=== PATIENT | male | born 1970 | race Caucasian/White ===

== ENCOUNTER 2018-12-27 22:35 | Inpatient (IN) | payer MEDICARE, MEDICAID | END 2019-01-01 14:25 | disposition home or self-care (01) | LOC: ER 22:35 → ED HOLD 12-28 00:24 → ORTHO 4S 12-28 01:43 | PROC: 0TPBX0Z Removal of Drainage Device from Bladder, External Approach (ICD-10-PCS; principal; ~2018-12-27) | DX: J15.9 Unspecified bacterial pneumonia (principal); G82.52 Quadriplegia, C1-C4 incomplete; N39.0 Urinary tract infection, site not specified ==

== ENCOUNTER 2022-09-21 09:33 | Emergency (ER) | payer MEDICARE, MEDICAID ==
[~2022-09-21] VITALS: Ht 188 cm; Wt 84.1 kg
[~2022-09-21 09:33] MED LIST: ALBU18HF2 INH; ALBU2.5V12 NEB; AZIT500T9 PO; GABA-534 PO; GUAI600T45 PO; TIZA4CAP PO
[2022-09-21] MEDS ORDERED: ketorolac trometh. 30mg/ml inj. IV ONE (10:20)
[2022-09-21] MEDS ORDERED: ketorolac tromethamine 15mg/ml inj. IV ONE (10:25)
[2022-09-21 10:55] LABS: ALANINE AMINOTRANSFERASE 8 U/L (12-78); ALBUMIN 3.1 G/DL (3.4-5.0); ALBUMIN/GLOBULIN RATIO 0.8 (1.1-1.5); ALKALINE PHOSPHATASE 73 IU/L (46-116); ANION GAP 3 (8-16); ASPARTATE AMINO TRANSFERASE 18 U/L (10-37); BILIRUBIN,TOTAL 0.3 MG/DL (0.1-1.0); BLOOD UREA NITROGEN 10 MG/DL (7-18); BUN/CREATININE RATIO 41.7 (5.4-32.0); CALCIUM 8.9 MG/DL (8.5-10.1); CHLORIDE 106 MMOL/L (99-107); CREATININE 0.24 MG/DL (0.60-1.10); GLUCOSE 97 MG/DL (70-104); SODIUM 141 MMOL/L (135-145); TOTAL CARBON DIOXIDE 31.9 MMOL/L (24-32); TOTAL PROTEIN 6.9 G/DL (6.4-8.2); eGFR > 90 ML/MIN
[2022-09-21 12:04] LABS: BASOPHILS % (AUTO) 0.6 % (0-1); EOSINOPHILS # (AUTO) 0.2 X10'3 (0-0.9); EOSINOPHILS % (AUTO) 2.6 % (0-6); HEMATOCRIT 35.3 % (42.0-52.0); HEMOGLOBIN 11.7 g/dl (14.0-17.9); LYMPHOCYTES # (AUTO) 1.1 X10'3 (1.1-4.8); LYMPHOCYTES % (AUTO) 16.8 % (21-51); MEAN CORPUSCULAR HEMOGLOBIN 28.5 PG (27.0-31.0); MEAN CORPUSCULAR VOLUME 86.4 FL (78-98); MEAN PLATELET VOLUME 8.2 FL (7.4-10.4); MONOCYTES # (AUTO) 0.4 X10'3 (0-0.9); MONOCYTES % (AUTO) 6.7 % (2-12); NEUTROPHILS # (AUTO) 4.7 X10'3 (1.8-7.7); NEUTROPHILS % (AUTO) 73.3 % (42-75); PLATELET COUNT 179 X10'3 (140-440); RED BLOOD COUNT 4.09 X10'6 (4.70-6.10); RED CELL DISTRIBUTION WIDTH 17.6 % (11.5-14.5); WHITE BLOOD COUNT 6.4 X10'3 (4.5-11.0)
[2022-09-21 12:23] LABS: CLARITY,URINE CLOUDY (Clear); COLOR,URINE YELLOW (Yellow); GLUCOSE, URINE NEGATIVE (Neg); KETONES,URINE NEGATIVE (Neg); LEUKOCYTE ESTERASE ,URINE LARGE (Neg); NITRITES, URINE POSITIVE (Neg); OCCULT BLOOD,URINE SMALL (Neg); PROTEIN,URINE NEGATIVE (Neg); UROBILINOGEN,URINE 0.2 E.U/dL (0.2-1.0)
[2022-09-21 12:25] LABS: UA COLLECTION TYPE STRAIGHT CATH
[2022-09-21 12:27] LABS: WBC,URINE TNTC /HPF (0-4)
[2022-09-21 12:28] LABS: BACTERIA,URINE 1+ /HPF (Neg); MUCUS STRANDS NONE SEEN /LPF (Neg); RBC,URINE 0-2 /HPF (0-2); SQUAMOUS EPITHELIAL CELL,UR MANY /LPF (FEW)
[2022-09-21 12:29] LABS: YEAST FEW /HPF (NEGATIVE)
[2022-09-21] MEDS ORDERED: CefTRIAXone/D5W-Rocephin 1gm 50 ML IV ONE (13:00)
[2022-09-21] MEDS ORDERED: CEFD300C3 PO (14:32)
[2022-09-21 16:00] VITALS: BP 121/74
== END 2022-09-21 16:50 | disposition home or self-care (01) ==
LOC: ER 09:33
DX: T83.038A Leakage of other urinary catheter, initial encounter (principal); N39.0 Urinary tract infection, site not specified; I48.91 Unspecified atrial fibrillation; Z87.442 Personal history of urinary calculi; Z86.69 Personal history of other diseases of the nervous system and sense organs; Z95.0 Presence of cardiac pacemaker; Z98.890 Other specified postprocedural states; Z88.8 Allergy status to other drugs, medicaments and biological substances; Z79.2 Long term (current) use of antibiotics; Z79.899 Other long term (current) drug therapy; Y84.6 Urinary catheterization as the cause of abnormal reaction of the patient, or of later complication, without mention of misadventure at the time of the procedure
CPT/HCPCS: 36415; 74176; 80053; 81001; 85025; 87088; 96365; 96375; 99284; J0696; J1885

== ENCOUNTER 2025-04-19 11:03 | Inpatient (IN) | payer MEDICARE, MEDICAID ==
[~2025-04-19] VITALS: Ht 185.4 cm; Wt 80.0 kg
[~2025-04-19 11:03] MED LIST changes: -GABA-534 PO; +GABA-535 PO
--- NOTE | 2025-04-19 11:30 | Physician Documentation ---
History of Present Illness ~ Chief Complaint: Flank Pain Stated Complaint: L SIDE NUMBNESS Time Seen by MD: 11:29 Primary Medical Doctor: DR. ARMENDARIZ; [facility] HPI This is a 54-year-old male with a complex medical history that includes romulo driparesis, ostomy, chronic indwelling suprapubic catheter. He presents today due to concerns that he has, again, a urinary tract infection. He is endorsing generalized abdominal pain, and does note a history of kidney stones. He evidently sees urologist Dr. Gottlieb. Hx recurrent kidney stones. He notes recent imaging and hospitalization at [facility]. Reports feeling overall unwell but is unsure about chills/fever. Some nausea, no vomiting. Attempts to obtain these records have been unsuccessful. 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 Physical Exam Vital Signs: Temperature: 98.6, Source: Oral, Heart Rate: 83, Respiratory Rate: 14, BP: 152/79, Pulse Oximetry: 99, Weight: 80.000 Oxygen Flow Rate: 0 Physical Exam General: Alert, no apparent distress. Chronically ill appearing Neck: Full range of motion. Respiratory: Lungs clear, no respiratory distress. Chest: No accessory muscle use. Cardiovascular: Regular rate and rhythm, no murmurs. Gastrointestinal: Diffuse abd tenderness. Extremities: Quadriparesis Neurologic: Oriented x4. Psychiatric: Normal mood and affect. Skin: Normal color, warm and dry. No edema, no ecchymosis. Progress Progress Note 1328: Spoke with rural mail contractor ID specialist Dr. Sam who advises that she is aware of patient hx and recommends Merrem. She will also f/u on his cx. 1333: Page to rural mail contractor urologist Dr. Rajan. 1424: Spoke with Dr. Gottlieb, who states patient well known to him. Does NOT recommend repeating CT. Reports that most recent CT scan showed non-obstructing stones. Agrees to consult during hospitalization. Results/Orders Results/Orders Orders - RAMILA PEARCE HYDRAULIC OIL TOOL OPERATOR Cult Urine + Corn Ct (04/19/25 12:01) * Iv Access / Saline Lock * (04/19/25 12:12) Potassium Cl 40meq/1/2ns 520ml ([place] (04/19/25 12:40) Observation Status Start (04/19/25 12:37) Observation Status Start (04/19/25 12:37) Culture Blood (04/19/25 13:28) Page Hospitalist (04/19/25 14:02) Completed Orders - RAMILA PEARCE HYDRAULIC OIL TOOL OPERATOR Cbc/Diff (04/19/25 11:31) CMP (04/19/25 11:31) Ua W/Microscopic, Cult If Ind (04/19/25 11:15) Morphine 4mg/Ml Inj. (Morphine Inj.) (04/19/25 12:15) Ondansetron Inj. (Zofran 4mg/2ml Vial) (04/19/25 12:15) Potassium Cl Sr Tablet (K-Dur Tablet) (04/19/25 12:40) Lacticsepsis (04/19/25 13:28) Procalcitonin (04/19/25 13:28) Meropenem 500mg/50ml-Ns Ivpb (Meropenem- (04/19/25 13:35) C-Reactive Protein (04/19/25 11:56) Medications Received in ER Medications (Trade) Dose Ordered Sig/Pebbles Route PRN Reason Start Time Stop Time Status Last Admin Dose Admin (morphine inj.) 4 mg ONCE ONCE IV 04/19/25 12:15 04/19/25 12:16 DC 04/19/25 14:00 4 MG (Zofran 4mg/2ml vial) 4 mg ONCE ONCE IV 04/19/25 12:15 04/19/25 12:16 DC 04/19/25 13:59 4 MG Potassium Chloride 520 ml @ 130 mls/hr ONCE ONCE IV 04/19/25 12:40 04/19/25 16:39 04/19/25 14:02 130 MLS/HR (K-DUR tablet) 20 meq ONCE ONCE PO 04/19/25 12:40 04/19/25 12:41 DC 04/19/25 13:39 20 MEQ Meropenem/Sodium Chloride 50 ml @ 100 mls/hr NOW ONCE IV 04/19/25 13:35 04/19/25 14:04 DC 04/19/25 14:26 100 MLS/HR Vital Signs 04/19/25 04/19/25 04/19/25 04/19/25 11:07 11:30 13:37 14:00 Temp 98.6 Pulse 83 75 Resp 14 12 12 B/P (MAP) 152/79 137/57 (83) Pulse Ox 99 98 O2 Flow Rate 0 0 04/19/25 14:40 Pulse 67 Resp 17 B/P (MAP) 103/57 (72) Pulse Ox 97 O2 Flow Rate 0 Laboratory Tests Test 04/19/25 11:15 04/19/25 11:56 Urine Specimen Description Presley cath Urine Color Yellow Urine Clarity Turbid Urine pH 6.0 Urine Specific [place] 1.010 Urine Protein Negative Urine Glucose (UA) Negative Urine Ketones Negative Urine Occult Blood Small Urine Nitrite Positive H Urine Bilirubin Negative Urine Urobilinogen 0.2 Urine Leukocyte Esterase Large H Urine RBC 3-10 Urine WBC Tntc H Urine Squamous Epithelial Cells Few Urine Transitional Epithelial Cells Few Urine Bacteria 3+ Urine Yeast Moderate Urine Culture Indicated Indicated Volume Urine Centrifuged 10 ml Urine Comment White Blood Count 8.5 Red Blood Count 3.80 L Hemoglobin 11.6 L Hematocrit 34.0 L Mean Corpuscular Volume 89.5 Mean Corpuscular Hemoglobin 30.5 Mean Corpuscular Hemoglobin Concent 34.0 Red Cell Distribution Width 16.1 H Platelet Count 151 Mean Platelet Volume 7.8 Neutrophils (%) (Auto) 82.6 H Lymphocytes (%) (Auto) 10.4 L Monocytes (%) (Auto) 6.1 Eosinophils (%) (Auto) 0.5 Basophils (%) (Auto) 0.4 Neutrophils # (Auto) 7.0 Lymphocytes # (Auto) 0.9 L Monocytes # (Auto) 0.5 Eosinophils # (Auto) 0.0 Basophils # (Auto) 0.0 CBC Comment Sodium Level 139 Potassium Level 2.8 *L Chloride Level 102 Carbon Dioxide Level 29.2 Anion Gap 8 Blood Urea Nitrogen 9 Creatinine 0.34 L Estimated GFR/1.73 m2 > 90 BUN/Creatinine Ratio 26.5 H Glucose Level 102 Lactic Acid Level 0.6 Calcium Level 8.2 L Total Bilirubin 0.8 Aspartate Amino Transf (AST/SGOT) 19 Alanine Aminotransferase (ALT/SGPT) 12 Alkaline Phosphatase 77 C-Reactive Protein 8.84 H Total Protein 6.7 Albumin 2.6 L Globulin 4.1 Albumin/Globulin Ratio 0.6 L Procalcitonin 0.38 Chemistry Comments Microbiology Date/Time Source Procedure Growth Status 04/19/25 12:01 Urine Presley Cath Urine Culture - Preliminary Culture received. Resulted Medical Decision Making Additional Comment Medically complex 54-year-old male who presents today due to concerns for abd ominal pain. He notes that he has a history of recurrent urinary tract infections. Consultation with infectious disease specialist Dr. Epperson distended, who advises that he should be initially treated with meropenem. She will consult and watch his culture results. Patient will also be given a L of normal saline as a bolus and medicated for pain. Imaging is not repeated at this time, as patient reports that he recently had imaging at [facility]. These images have been requested. His urologist has been consulted and a call back is expected. Departure Time of Disposition: 15:24 Disposition: 09 ADMITTED INPATIENT Admitted to Inpatient Unit: yes, to hospitalist Impression: Primary Impression: Acute urinary tract infection Referrals: NO PRIMARY CARE PROVIDER (PCP) Signature Scribe Signature: no scribe Attestation: The note accurately reflects work and decisions made by me.Ramila Ramirez NP 04/19/25 13:34 RAMILA PEARCE NP Apr 19, 2025 11:30
[2025-04-19 11:48] LABS: LEUKOCYTE ESTERASE ,URINE LARGE (Neg); NITRITES, URINE POSITIVE (Neg); OCCULT BLOOD,URINE SMALL (Neg)
[2025-04-19 11:49] LABS: UA COLLECTION TYPE FOLEY CATH
[2025-04-19 11:58] LABS: YEAST MODERATE /HPF (NEGATIVE)
[2025-04-19 12:00] LABS: SQUAMOUS EPITHELIAL CELL,UR FEW /LPF (FEW)
[2025-04-19 12:07] LABS: MEAN PLATELET VOLUME 7.8 FL (7.4-10.4); RED CELL DISTRIBUTION WIDTH 16.1 % (11.5-14.5)
[2025-04-19 12:25] LABS: CREATININE 0.34 MG/DL (0.60-1.10); TOTAL CARBON DIOXIDE 29.2 MMOL/L (24-32); eCRCL 277 ML/MIN; eGFR > 90 ML/MIN
[2025-04-19] MEDS ORDERED: CefTRIAXone/D5W-Rocephin 1gm 50 ML IV ONE (13:30)
[2025-04-19] MEDS: potassium Cl 20 mEq SR tablet PO ONE (13:39)
[2025-04-19] MEDS: ondansetron/PF 4mg/2ml inj IV ONE (13:59)
[2025-04-19] MEDS: morphine 4 MG/ML inj SYRINge IV ONE ×2 (14:00→16:56)
[2025-04-19] MEDS: potassium Cl 40MEQ/1/2NS 520ml 520 ML IV ONE (14:02)
[2025-04-19] MEDS: MEROPENEM 500MG/50ML-NS IVPB 50 ML IV ONE (14:26)
[2025-04-19] MEDS ORDERED: potassium Cl 20 mEq SR tablet PO PRN (14:35)
[2025-04-19] MEDS ORDERED: potassium Cl 40MEQ/1/2NS 520ml 520 ML IV PRN (14:35)
[2025-04-19] MEDS ORDERED: magnesium sulf-water 2g/50mL 50 ML IV PRN (14:35)
[2025-04-19] MEDS ORDERED: magnesium sulf-water 4G/100mL 100 ML IV PRN (14:35)
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
[2025-04-19] MEDS: docusate sod 100mg capsule PO SCH (20:00)
[2025-04-19] MEDS ORDERED: MEROPENEM 500MG/50ML-NS IVPB 50 ML IV SCH (20:00)
[2025-04-19] MEDS: ondansetron/PF 4mg/2ml inj IV PRN (20:18)
[2025-04-19] MEDS ORDERED: FEXO-236 PO (20:36)
[2025-04-19] MEDS ORDERED: MELA5TAB12 PO (20:36)
[2025-04-19] MEDS ORDERED: LEVE100023 PO (20:36)
[2025-04-19 21:20] VITALS: BP 151/98; PULSE 103; RESP 18; TEMP 98.8; O2SAT 99
[2025-04-19 21:22] LABS: CREATININE 0.23 MG/DL (0.60-1.10); TOTAL CARBON DIOXIDE 25.5 MMOL/L (24-32); eCRCL 410 ML/MIN; eGFR > 90 ML/MIN
[2025-04-19 21:30] VITALS: RESP 18; O2SAT 99
[2025-04-20] VITALS (7 sets, daily range): BP systolic 96–132; BP diastolic 56–84; PULSE 65–80; RESP 15–18; TEMP 98.1–98.7; O2SAT 98–100
[2025-04-20] MEDS: MEROPENEM 500MG/50ML-NS IVPB 50 ML IV SCH (03:04)
[2025-04-20 05:42] LABS: MEAN PLATELET VOLUME 8.0 FL (7.4-10.4); RED CELL DISTRIBUTION WIDTH 16.0 % (11.5-14.5)
[2025-04-20 05:44] LABS: CREATININE 0.26 MG/DL (0.60-1.10); TOTAL CARBON DIOXIDE 28.2 MMOL/L (24-32); eCRCL 363 ML/MIN; eGFR > 90 ML/MIN
[2025-04-20] MEDS: potassium Cl 20 mEq SR tablet PO PRN (09:40)
[2025-04-20] MEDS ORDERED: non-formulary drug (Albuterol Sulfate (Ventolin Hfa) 2 PUFFS) INH SCH (14:35)
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
[2025-04-20] MEDS ORDERED: albuterol 2.5 MG/3 ML nebule NEB PRN (20:00)
[2025-04-21 05:39] LABS: MEAN PLATELET VOLUME 7.8 FL (7.4-10.4); RED CELL DISTRIBUTION WIDTH 16.0 % (11.5-14.5)
[2025-04-21 05:55] LABS: CREATININE 0.29 MG/DL (0.60-1.10); TOTAL CARBON DIOXIDE 31.2 MMOL/L (24-32); eCRCL 325 ML/MIN; eGFR > 90 ML/MIN
[2025-04-21 06:36] VITALS: BP 121/75; PULSE 66; RESP 16; TEMP 99.8; O2SAT 99
[2025-04-21 07:20] VITALS: RESP 16; O2SAT 99
[2025-04-21 11:40] VITALS: BP 97/58; PULSE 70; RESP 16; TEMP 97.5; O2SAT 95
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
[2025-04-21 18:00] VITALS: BP 104/71; PULSE 65; RESP 16; TEMP 97.8; O2SAT 100
[2025-04-21 20:00] VITALS: RESP 16; O2SAT 100
[2025-04-21 22:00] VITALS: BP 100/69; PULSE 87; RESP 16; TEMP 97.6; O2SAT 97
[2025-04-22] VITALS (7 sets, daily range): BP systolic 88–153; BP diastolic 61–78; PULSE 64–77; RESP 16–20; TEMP 97.6–97.9; O2SAT 97–99
[2025-04-22 06:59] LABS: MEAN PLATELET VOLUME 8.4 FL (7.4-10.4); RED CELL DISTRIBUTION WIDTH 16.3 % (11.5-14.5)
[2025-04-22 07:36] LABS: CREATININE 0.35 MG/DL (0.60-1.10); TOTAL CARBON DIOXIDE 24.8 MMOL/L (24-32); eCRCL 270 ML/MIN; eGFR > 90 ML/MIN
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
[2025-04-22] MEDS: HYDROcodone/acetaminophen 5mg/325mg tablet PO PRN (21:28)
[2025-04-23 05:57] LABS: MEAN PLATELET VOLUME 8.5 FL (7.4-10.4); RED CELL DISTRIBUTION WIDTH 16.0 % (11.5-14.5)
[2025-04-23 06:00] VITALS: BP 90/51; PULSE 56; RESP 17; TEMP 97; O2SAT 98
[2025-04-23 06:05] LABS: CREATININE 0.26 MG/DL (0.60-1.10); TOTAL CARBON DIOXIDE 28.2 MMOL/L (24-32); eCRCL 363 ML/MIN; eGFR > 90 ML/MIN
[2025-04-23 13:15] VITALS: PULSE 68; RESP 16; O2SAT 98
[2025-04-23] MEDS ORDERED: potassium Cl 40MEQ/1/2NS 520ml 520 ML IV PRN (14:50)
[2025-04-23] MEDS ORDERED: potassium Cl 20 mEq SR tablet PO PRN (14:50)
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
[2025-04-23] MEDS: potassium Cl 20 mEq SR tablet PO PRN (16:24)
[2025-04-23 18:00] VITALS: BP 92/58; PULSE 69; RESP 17; TEMP 97.8; O2SAT 97
--- NOTE | 2025-04-23 18:43 | CONSULTATION REPORT ---
History of Present Illness Providers to CC CC: YAQUELIN SWANSON MD ~ Reason for Admit\Admit Dx: Cardiology consultation Refering MD: DR. ARMENDARIZ; [facility] History of Present Illness This is a 54-year-old male who is followed by Dr. Bernstein for Cardiology Services as an outpatient. Has history of atrial fibrillation. He has been quadriplegic since a injury in 1989. Has not ileostomy. Has chronic urinary tract infections and self cast with suprapubic catheter. He states he had an episode of syncope that brought him to requiring a pacemaker about 13-14 years ago. Unfortunately, the battery has in March 2025. States multiple episodes of kidney stones. He has had lithotripsy x7. Follows at [facility]. Reports that he has a 12 mm kidney stone and requires lithotripsy again however the urologist is refusing to do the procedure until his pacemaker generator is changed out. Unfortunately given his frequent urinary tract infections and likely colonization he has not been able to achieve this. Allergies: Coded Allergies: meperidine (Verified Allergy, Mild, SEIZURE, 04/19/25) Sulfa (Sulfonamide Antibiotics) (Verified Allergy, Unknown, 04/19/25) Uncoded Allergies: SULFA (Allergy, Mild, 12/27/18) Home Medications Home Medications Active Albuterol Sulfate (Albuterol) 2.5 Mg/0.5 Ml Vial.neb 1 Vial NEB Q6H 30 Days Reported Melatonin 5 Mg Tab.rapdis 1 Tab PO HS 30 Days Levetiracetam 1,000 Mg Tablet 1 Tab PO BID Allergy Relief (Fexofenadine HCl) 180 Mg Tablet 1 Tab PO DAILY Ventolin Hfa (Albuterol Sulfate) 18 Gm Hfa.aer.ad 2 Puffs INH Q4HPRN Gabapentin 400 Mg Capsule 2 Cap PO BID Past Medical History Medical History Comment Atrial fibrillation Cervical spine injury with quadriplegia Ileostomy Multiple episodes of kidney stones requiring lithotripsy Past Surgical History Surgical History Comment C3-C4 fusion Decubitus ulcer requiring skin flap Port placement to the left chest Lithotripsy Ileostomy placement Cholecystectomy Permanent pacemaker Past Social History Social History Comment Does not currently drink alcohol smoke or use recreational drugs. Physical Exam Last Vital Signs Recorded: RN Vital Signs have been reviewed: Yes, Temperature: 97.0, Source: Oral, Heart Rate: 68, Respiratory Rate: 16, BP: 90/51, Pulse Oximetry: 98, Weight: 80.000 Physical Exam General: Awake, alert, oriented. No apparent distress Neck: Supple. Normal range of motion. No JVD Respiratory: Lungs are clear to auscultation bilaterally. No respiratory distress. Chest: Normal shape and size. No accessory muscle use. Patient has a port in his left chest and permanent pacemaker is located in his right chest. Cardiovascular: Regular rate and rhythm. S1-S2. No murmur, gallop, rub. Gastrointestinal: Abdomen is soft. Nontender to palpation. Bowel sounds present. Extremities: No lower extremity edema, cyanosis or clubbing. Psychiatric: Normal mood and affect. Skin: Normal color. Warm and dry. Review of Systems ROS Review of systems negative except documented in HPI. Results Diagram Lab Result Diagram: 04/23/25 04104/23/25 041 Assessment/Plan Additional Plan This is a 54-year-old male who presented secondary to abdominal pain. The following is his problem list: Sick sinus syndrome status post pacemaker History of atrial fibrillation Pacemaker at end of life Not on oral anticoagulation (CV: 0) Discussed permanent pacemaker generator change. Risks, benefits and alternatives reviewed. Discussed risks of infection given urinary tract infection. Fortunately, blood cultures has been negative. Discussed with Infectious Disease, Dr. Sam who stated from her perspective no contraindication to generator change. Plan for tomorrow evening. Kidney stones Complicated urinary tract infection --management per hospitalist Hypokalemia --recommend replacement per protocol Case discussed with Dr. Socrates Swanson. In agreement with the above. Supervising MD Supervising Physician: MEGA Adorno NP Apr 23, 2025 18:43
[2025-04-23] MEDS: K and/or MAG REPLACEMENT MC SCH (20:00)
[2025-04-23 20:59] VITALS: BP 101/54; PULSE 84; RESP 14; TEMP 97.8; O2SAT 99
[2025-04-23 22:00] VITALS: BP 97/61; PULSE 71
--- NOTE | 2025-04-23 22:56 | PROGRESS NOTE ---
Progress Note ID Providers to CC ~ Progress Note Progress Note: Antibiotic Days Merrem 3 Lines PIV Micro 7/3 Urine- Ecoli, Pseudomonas, Concetta 7/3 Blood- ngtd Subjective: Patient is a 54 year old quadriplegic male who is well known to me due to his history of nephrolithiasis, UTI though all of his prior admissions have been at [facility]. He has had a couple of hospital stays recently where we have continued outpatient antibiotics in anticipation of urology intervention (at [facility]) but those procedures have been cancelled. Patient's initial explanation did not make as much sense to me as what he has heard lately, which is that he lacks cardiology clearance until his pacer generator is exchanged. I have discussed this with Dr. Feliz as an outpatient but he is symptomatic again and so came to the ER. He was started on Merrem which he does think has made a difference. Objective Vitals: Afebrile, 84, 14, 101/54, 99% on RA General: alert, NAD RESP: Clear anteriorly ABD: Soft, nontender, SP cath and ostomy NEURO: incomplete quad EXT: contractures LINES: PIV ok Laboratory Tests 04/23/25 04:19 Assessment // Complicated UTI- current cultures with Ecoli, Pseudomonas, Canddia // Nephrolithiasis contributing to recurrent UTIs // Neurogenic Bladder // C3-4 Incomplete Quadriplegia -eGFR by Cystatin C 91 // Pacemaker status - in need of new generator // Allergy listed to Sulfa Plan -Continue Merrem. 2 week course planned - This would be a great opportunity to replace his pacer. In house consultation noted and appreciated. Will contact Dr. Feliz if change doesn't happen in house - He now has his stone surgery scheduled in May -Monitor CBC, CMP - Dispo planning: home infusion -Will continue to follow TERESA WILSON DO Apr 23, 2025 22:56
[2025-04-24] VITALS (7 sets, daily range): BP systolic 85–181; BP diastolic 60–86; PULSE 66–81; RESP 14–17; TEMP 97–98.3; O2SAT 95–100
[2025-04-24] MEDS: MEROPENEM 500MG/50ML-NS IVPB 50 ML IV ONE (03:28)
[2025-04-24 04:19] LABS: MEAN PLATELET VOLUME 8.2 FL (7.4-10.4); RED CELL DISTRIBUTION WIDTH 16.7 % (11.5-14.5)
[2025-04-24 04:26] LABS: CREATININE 0.41 MG/DL (0.60-1.10); TOTAL CARBON DIOXIDE 29.4 MMOL/L (24-32); eCRCL 230 ML/MIN; eGFR > 90 ML/MIN
[2025-04-24 05:17] LABS: HBSAG SCREEN Negative (Negative); HEP B CORE AB, IGM Negative (Negative); HEP B CORE AB, TOT Negative (Negative)
[2025-04-24] MEDS ORDERED: hydrALAZINE 20mg/ml inj. IV PRN (11:20)
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
--- NOTE | 2025-04-24 11:53 | PROGRESS NOTE ---
Progress Note Cardiology Providers to CC ~ Subjective Subjective Patient plans for Gen change this evening. His device has been interrogated and confirmed at end of life. Objective Result Diagram: 04/24/2540704/24/25407 Objective General: Awake, alert, oriented. No apparent distress Neck: Supple. Normal range of motion. No JVD Respiratory: Lungs are clear to auscultation bilaterally. No respiratory distress. Chest: Normal shape and size. No accessory muscle use. Patient has a port in his left chest and permanent pacemaker is located in his right chest. Cardiovascular: Regular rate and rhythm. S1-S2. No murmur, gallop, rub. Gastrointestinal: Abdomen is soft. Nontender to palpation. Bowel sounds present. Extremities: No lower extremity edema, cyanosis or clubbing. Psychiatric: Normal mood and affect. Skin: Normal color. Warm and dry. Problem\Assessment\Plan Additional Plan This is a 54-year-old male who presented secondary to abdominal pain. The following is his problem list: Sick sinus syndrome status post pacemaker History of atrial fibrillation Pacemaker at end of life Not on oral anticoagulation (CV: 0) Discussed permanent pacemaker generator change. Risks, benefits and alternatives reviewed. Discussed risks of infection given urinary tract infection. Fortunately, blood cultures has been negative. Discussed with Infectious Disease, Dr. Sam who stated from her perspective no contraindication to generator change. Plan for this evening. Kidney stones Complicated urinary tract infection --management per hospitalist Hypokalemia --recommend replacement per protocol Case discussed with Dr. Socrates Swanson. In agreement with the above. Supervising Physician: MEGA Adorno NP Apr 24, 2025 11:53
[2025-04-24] MEDS ORDERED: midazolam 1 mg/ML 2ml injection ONE (16:18)
[2025-04-24] MEDS ORDERED: LIDOCAINE 2%/EPI 1:100,000 inj. Multi-dose 20 ML VIAL ONE (16:18)
[2025-04-24] MEDS ORDERED: fentaNYL/PF 50MCG/1 ML 2ML syringe ONE (16:18)
[2025-04-24] MEDS ORDERED: LIDOcaine 1% W/epiNEPHrine 1:100,000 20ml vial ONE (16:32)
[2025-04-24] MEDS: normal saline 1000ml 1,000 ML IV ONE (19:00)
--- NOTE | 2025-04-24 23:05 | PROGRESS NOTE ---
Progress Note ID Providers to CC ~ Progress Note Progress Note: Antibiotic Days Merrem 4 Lines PIV Micro 7/3 Urine- Ecoli, Pseudomonas, Concetta 7/3 Blood- ngtd Subjective: Patient was excited to be planned for pacemaker change this evening. He was seen just before midline placement Objective Vitals: Afebrile, 81, 16, 107/69, 95% on RA General: alert, NAD RESP: Clear anteriorly ABD: Soft, nontender, SP cath and ostomy NEURO: incomplete quad EXT: contractures LINES: PIV ok Laboratory Tests 04/24/25 04:08 Assessment // Complicated UTI- current cultures with Ecoli, Pseudomonas, Canddia // Nephrolithiasis contributing to recurrent UTIs // Neurogenic Bladder // C3-4 Incomplete Quadriplegia -eGFR by Cystatin C 91 // Pacemaker status - in need of new generator // Allergy listed to Sulfa Plan - Scripts for home infusion Merrem 1 gm IV Q8 hours CBC, CMP weekly Stop date: 05/04/25 Please remove midline once therapy is complete - He now has his stone surgery scheduled in May TERESA WILSON DO Apr 24, 2025 23:05
[2025-04-25] MEDS: ceFAZolin/D5W- 1GM premix 50 ML IV ONE (01:51)
[2025-04-25 01:57] VITALS: BP 120/77; PULSE 82; RESP 14; TEMP 98.8; O2SAT 99
[2025-04-25 05:47] VITALS: O2SAT 99
[2025-04-25] MEDS ORDERED: LOSA25TA41 PO (06:51)
[2025-04-25 06:55] VITALS: BP 102/62; PULSE 74; RESP 15; TEMP 97.9; O2SAT 97
[2025-04-25 08:08] LABS: MEAN PLATELET VOLUME 8.1 FL (7.4-10.4); RED CELL DISTRIBUTION WIDTH 16.4 % (11.5-14.5)
[2025-04-25] MEDS: pantoprazole 40mg Tablet.DR PO SCH (08:15)
--- NOTE | 2025-04-25 08:17 | RADIOLOGY REPORT ---
EXAM: DI CHEST,SINGLE VIEW Indication: PACEMAKER/ICD LEAD PLACEMENT Technique: Single frontal view of the chest was obtained Comparison: None FINDINGS: Lines and Tubes: Cardiac pacemaker projects over the right chest wall. Lungs: No focal consolidation. Pleura: No effusion. No pneumothorax. Cardiomediastinal contours: Unremarkable Bones: No acute osseous abnormality. IMPRESSION: No acute cardiopulmonary disease.
[2025-04-25 08:20] LABS: CREATININE 0.25 MG/DL (0.60-1.10); TOTAL CARBON DIOXIDE 28.6 MMOL/L (24-32); eCRCL 377 ML/MIN; eGFR > 90 ML/MIN
[2025-04-25 10:51] VITALS: BP 103/59; PULSE 69; RESP 17; TEMP 98.5; O2SAT 100
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
--- NOTE | 2025-05-13 15:57 | CARDIOLOGY REPORT ---
DATE OF SERVICE: 04/24/2025 DICTATING PHYSICIAN: Hossein Swanson MD PACEMAKER GENERATOR CHANGE OUT DATE OF PROCEDURE: 04/24/2025 PROCEDURE: Pacemaker generator change out. INDICATIONS: LIDIA. PHYSICIAN: Hossein Swanson MD DESCRIPTION OF PROCEDURE: After informed consent was obtained, the patient was brought to the lab where he was prepped and draped in the usual sterile fashion. After adequate anesthesia to the left subclavicular region, a 3-5 cm incision was made. Next, using blunt dissection, the old pacemaker was exposed and explanted. A new Medtronic generator pacemaker was attached to the previous leads. The pocket was then copiously irrigated. Both leads were secured to the generator. Subcutaneous tissue was closed with 4-0 Vicryl and subcuticular tissue with 4-0 Monocryl. Steri-Strips were applied. The patient tolerated the procedure well. IMPRESSION: Successful pacemaker generator change out with a Medtronic [id number] [id number] Pom[place] SDR MRI compatible pacemaker. Hossein Swanson MD TID: [id number] RECEIPT: [id number] ANNIE/GALILEO/TIM
== END 2025-04-25 15:20 | disposition home health service (06) | DRG 987 ==
LOC: ER 11:04 → ED HOLD 17:24 → SUR 3N 21:10
PROVIDERS: ADMIT Internal Medicine; ATTEND Internal Medicine
PROC: 0JPT0PZ Removal of Cardiac Rhythm Related Device from Trunk Subcutaneous Tissue and Fascia, Open Approach (ICD-10-PCS; principal; 2025-04-24)
PROC: 0JH606Z Insertion of Pacemaker, Dual Chamber into Chest Subcutaneous Tissue and Fascia, Open Approach (ICD-10-PCS; 2025-04-24)
PROC: 05HD33Z Insertion of Infusion Device into Right Cephalic Vein, Percutaneous Approach (ICD-10-PCS; 2025-04-24)
PROC: B54NZZA Ultrasonography of Left Upper Extremity Veins, Guidance (ICD-10-PCS; 2025-04-24)
DX: T83.518A Infection and inflammatory reaction due to other urinary catheter, initial encounter (principal); G82.52 Quadriplegia, C1-C4 incomplete; N39.0 Urinary tract infection, site not specified; Z45.010 Encounter for checking and testing of cardiac pacemaker pulse generator [battery]; I49.5 Sick sinus syndrome; T83.098A Other mechanical complication of other urinary catheter, initial encounter; M62.48 Contracture of muscle, other site; E87.6 Hypokalemia; I16.0 Hypertensive urgency; N31.9 Neuromuscular dysfunction of bladder, unspecified; N20.0 Calculus of kidney; Y83.8 Other surgical procedures as the cause of abnormal reaction of the patient, or of later complication, without mention of misadventure at the time of the procedure; Y92.89 Other specified places as the place of occurrence of the external cause; I48.91 Unspecified atrial fibrillation; Z88.2 Allergy status to sulfonamides; Z93.3 Colostomy status; Z79.899 Other long term (current) drug therapy; Z74.01 Bed confinement status; Z88.8 Allergy status to other drugs, medicaments and biological substances; Z90.49 Acquired absence of other specified parts of digestive tract
CPT/HCPCS: 33228; 36410; 36415; 71045; 76937; 80048; 80053; 81001; 83605; 83735; 84145; 85025; 86140; 86704; 86705; 87040; 87077; 87081; 87088; 87186; 87340; 94760; 96361; 96365; 96375; 96376; 99152; 99153; 99285; A4314; A4421; A4565; A5200; A6212; A6213; A6234; A6253; A6449; C1751; C1785; G0378; J0690; J2185; J2250; J2270; J2405; J3010; J3480; J3490; J7030; J7040

== ENCOUNTER 2025-04-29 07:51 | Emergency (ER) | payer MEDICARE, MEDICAID ==
[~2025-04-29] VITALS: Ht 185.4 cm; Wt 77.3 kg
[~2025-04-29 07:51] MED LIST changes: -ALBU2.5V12 NEB; -AZIT500T9 PO; +FEXO-236 PO; -GUAI600T45 PO; +LEVE100023 PO; +LOSA25TA41 PO; +MELA5TAB12 PO; -TIZA4CAP PO
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
[2025-04-29 09:14] LABS: MEAN PLATELET VOLUME 7.7 FL (7.4-10.4); RED CELL DISTRIBUTION WIDTH 15.8 % (11.5-14.5)
[2025-04-29 09:23] VITALS: PULSE 80
[2025-04-29 09:46] LABS: TOTAL CARBON DIOXIDE 31.4 MMOL/L (24-32)
[2025-04-29 10:06] LABS: CREATININE 0.15 MG/DL (0.60-1.10); eCRCL 608 ML/MIN; eGFR > 90 ML/MIN
[2025-04-29] MEDS: tPA-cathflo 2mg/2ml IV flush 2 MG/2 ML VIAL IVF ONE (10:51)
[2025-04-29 11:35] VITALS: BP 110/65; RESP 13; TEMP 98; O2SAT 94
== END 2025-04-29 11:57 | disposition home or self-care (01) ==
LOC: ER 07:51
DX: T82.318A Breakdown (mechanical) of other vascular grafts, initial encounter (principal); I48.91 Unspecified atrial fibrillation; Z88.1 Allergy status to other antibiotic agents; Z88.5 Allergy status to narcotic agent; Z88.2 Allergy status to sulfonamides; Z90.49 Acquired absence of other specified parts of digestive tract; Z95.0 Presence of cardiac pacemaker; Z79.899 Other long term (current) drug therapy; Z87.442 Personal history of urinary calculi
CPT/HCPCS: 36415; 80048; 85025; 99284; J2997

== ENCOUNTER 2025-05-15 10:11 | Outpatient (CLI) | payer MEDICARE, MEDICAID ==
--- NOTE | 2025-05-15 18:43 | CARDIOLOGY REPORT ---
APPROVED REPORT EXAM: Comprehensive 2D, Doppler, and color-flow Echocardiogram. Patient Location: OUTPATIENT Blood Pressure: 113/70 mmHg Heart Rate: 60's bpm Rhythm: SINUS Indications SHORTNESS OF BREATH PACEMAKER 11/2013 [place] [employer] Erector: Adam Swanson MD Previous echo: NO PREVIOUS ECHOS PER DR. NASH OFFICE 2D Dimensions RVDd 3.4 cm IVSd 0.8 (0.7-1.1cm) LVDd 4.9 cm PWd 0.8 (0.7-1.1cm) IVSs 1.1 (0.8-1.2cm) LVDs 3.6 (2.5-4.0cm) PWs 1.2 (0.8-1.2cm) LVOT Diameter 2.01 (1.8-2.4cm) LVEF(%) 52.5 (>50%) Ao Asc Diam.3.00 cm IVC 20.07 mmFS (%) 27.0 % SV 59.1 ml M-Mode Dimensions Aortic Root 3.24 (2.2-3.7cm) Aortic Valve AoV Peak Cas. 117.1 cm/s AoV VTI 23.1 cm AO Peak GR. 5.5 mmHg AO Mean GR. 3 mmHg LVOT VTI 17.97 cm LVOT Peak Cas. 98.9 cm/s MAURICIO (VMAX) 2.69 cm2 MAURICIO (VTI) 2.47 cm2 Mitral Valve MV E Velocity 83.0 cm/s MV DECEL TIME 156 ms MV A Velocity 85.3 cm/s MV PHT 55 ms E/A Ratio 1.0 MVA (PHT) 4.01 cm2 Tricuspid Valve TR P. Velocity 290 cm/s RAP ESTIMATE 10 mmHg TR Peak Gr. 34 mmHg RVSP 44 mmHg LEFT VENTRICLE Normal LV size and wall thickness. Overall systolic function is low normal. LVEF is 50-55%. RIGHT VENTRICLE RV is mildly dilated with normal function. Elevated right heart pressures with an RVSP of 44 mmHg. Pa cemaker wire in right heart. ATRIA The left atrium size appears normal. AORTIC VALVE Trileaflet AV appears mildly sclerotic without stenosis. No insufficiency. MITRAL VALVE Mild MV annular calcification without stenosis. Trace regurgitation. TRICUSPID VALVE TV appears structurally normal with mild regurgitation. PULMONIC VALVE Normal PV without stenosis, no insufficiency. GREAT VESSELS The aortic root is normal in size. PERICARDIUM Normal pericardium. No effusion. Other Information Study Quality: Adequate but TDS subcostal window due to body habitus. Conclusion Normal LV size and wall thickness. Overall systolic function is low normal. LVEF is 50-55%. RV is mildly dilated with normal function. Elevated right heart pressures with an RVSP of 44 mmHg. Pa cemaker wire in right heart. The left atrium size appears normal. Trileaflet AV appears mildly sclerotic without stenosis. No insufficiency. Mild MV annular calcification without stenosis. Trace regurgitation. TV appears structurally normal with mild regurgitation. Normal pericardium. No effusion.
== END 2025-05-15 23:59 | disposition home or self-care (01) ==
LOC: CARD DIAG 10:11
DX: I08.3 Combined rheumatic disorders of mitral, aortic and tricuspid valves (principal); R06.02 Shortness of breath
CPT/HCPCS: 93306

== ENCOUNTER 2025-05-24 21:33 | Emergency (ER) | payer MEDICARE, MEDICAID ==
[~2025-05-24] VITALS: Ht 185.4 cm; Wt 87.2 kg
--- NOTE | 2025-05-24 22:34 | Physician Documentation ---
History of Present Illness ~ Chief Complaint: See Chief Complaint Stated Complaint: INFECTION Time Seen by MD: 21:46 Primary Medical Doctor: DR. ARMENDARIZ; [facility] HPI 54-year-old male presenting for a potentially infected right arm midline catheter. The patient is currently being treated for a multi-drug resistant urinary tract infection with IV meropenem as an outpatient. The midline was placed about four weeks ago. He has one week left on the IV meropenem to be completed. He states that for the past 3-4 days he has noticed that his arm has started to hurt. Today his energy systems engineer assessed his arm and felt that it was very warm and red. Patient states that he has felt slightly weak but denies any fever, chills or any other associated symptoms. He does complain of pain around the midline and in the forearm. Tetanus within 5 years: No Medication Reconciliation Allergies: Coded Allergies: ciprofloxacin (Verified Allergy, Severe, 04/24/25) red purple rash meperidine (Verified Allergy, Mild, SEIZURE, 04/19/25) Sulfa (Sulfonamide Antibiotics) (Verified Allergy, Unknown, 04/19/25) Uncoded Allergies: SULFA (Allergy, Mild, 12/27/18) Scheduled Albuterol Sulfate (Ventolin Hfa), 2 PUFFS INH Q4HPRN, (Reported) Fexofenadine HCl (Allergy Relief), 1 TAB PO DAILY, (Reported) Gabapentin (Gabapentin), 2 CAP PO BID, (Reported) Levetiracetam (Levetiracetam), 1 TAB PO BID, (Reported) Losartan Potassium (Losartan Potassium), 25 MG PO DAILY Melatonin (Melatonin), 1 TAB PO HS, (Reported) Past Medical History 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 I am going to discharge him. He will continue the meropenem for one additional week, as scheduled. Results/Orders Results/Orders Orders - RON JACOB MD Forearm,Incl.One Joint (05/24/25 22:59) Humerus (2vws) (05/24/25 22:59) Midline Placement(Picc Nurse) (05/25/25 ) Completed Orders - RON JACOB MD Electrocardiogram (05/24/25 22:29) Cbc/Diff (05/24/25 22:29) Pt Inr (05/24/25 22:29) PTT (05/24/25 22:29) Culture Blood (05/24/25 22:29) MG (05/24/25 22:29) Hs Troponin I W Calculations (05/24/25 22:29) CMP (05/24/25 22:29) Lacticsepsis (05/24/25 22:29) Forearm,Incl.One Joint (05/24/25 22:59) Humerus (2vws) (05/24/25 22:59) Morphine 4mg/Ml Inj. (Morphine Inj.) (05/24/25 22:30) Ondansetron Inj. (Zofran 4mg/2ml Vial) (05/24/25 22:30) Morphine 4mg/Ml Inj. (Morphine Inj.) (05/25/25 02:30) Vancomycin Inj (Vancomycin Inj) (05/25/25 04:45) Piperacillin/Tazo 3.375gm/50ml (Zosyn 3. (05/25/25 04:45) Ondansetron Inj. (Zofran 4mg/2ml Vial) (05/25/25 05:34) Vancomycin/Ns 1 Gm Add-[place] [facility] (Vancomyc (05/25/25 06:05) Laboratory Tests Test 05/24/25 22:41 White Blood Count 7.8 Red Blood Count 3.59 L Hemoglobin 11.0 L Hematocrit 31.9 L Mean Corpuscular Volume 88.8 Mean Corpuscular Hemoglobin 30.7 Mean Corpuscular Hemoglobin Concent 34.6 Red Cell Distribution Width 15.6 H Platelet Count 190 Mean Platelet Volume 7.5 Neutrophils (%) (Auto) 73.5 Lymphocytes (%) (Auto) 16.9 L Monocytes (%) (Auto) 8.9 Eosinophils (%) (Auto) 0.1 Basophils (%) (Auto) 0.6 Neutrophils # (Auto) 5.7 Lymphocytes # (Auto) 1.3 Monocytes # (Auto) 0.7 Eosinophils # (Auto) 0.0 Basophils # (Auto) 0.0 CBC Comment Prothrombin Time 10.6 INR International Normalized Ratio 1.0 Activated Partial Thromboplast Time 28 Coagulation Comments Sodium Level 142 Potassium Level 3.2 L Chloride Level 108 H Carbon Dioxide Level 30.3 Anion Gap 4 L Blood Urea Nitrogen 9 Creatinine 0.20 L Estimated GFR/1.73 m2 > 90 BUN/Creatinine Ratio 45.0 H Glucose Level 102 Lactic Acid Level 0.9 Calcium Level 8.3 L Magnesium Level 1.9 Total Bilirubin 0.4 Aspartate Amino Transf (AST/SGOT) 12 Alanine Aminotransferase (ALT/SGPT) 9 L Alkaline Phosphatase 77 Troponin I High Sensitivity 6 Total Protein 6.0 L Albumin 2.4 L Globulin 3.6 Albumin/Globulin Ratio 0.7 L Chemistry Comments Microbiology Date/Time Source Procedure Growth Status 05/24/25 22:51 Blood Wrist Left Blood Culture - Final NO GROWTH AFTER 5 DAYS Complete EKG/XRAY/CT/US/VASC/MRI EKG : Additional Comment EKG as interpreted by me indicating normal sinus rhythm at a rate of 66 beats per minute, no ischemia, normal axis Bone/Soft Tissue X-Ray (Ext.) : Additional Comment CLINICAL INDICATION: swelling RIGHT TECHNIQUE: 2 views right humerus, 3 views right forearm DI HUMERUS (2VWS), DI FOREARM,INCL.ONE JOINT Comparison: None FINDINGS/IMPRESSION: : No evidence of acute fracture. Diffuse osteopenia. Knee partially/shoulder, elbow, and wrist appear congruent with degenerative changes. No obvious wrist diffusion. Distal arm vascular catheter. Right axillary surgical clips. Partially imaged cardiac device. No appreciable soft tissue swelling. ICAL INDICATION: swelling RIGHT TECHNIQUE: 2 views right humerus, 3 views right forearm DI HUMERUS (2VWS), DI FOREARM,INCL.ONE JOINT Comparison: None FINDINGS/IMPRESSION: : No evidence of acute fracture. Diffuse osteopenia. Knee partially/shoulder, elbow, and wrist appear congruent with degenerative changes. No obvious wrist diffusion. Distal arm vascular catheter. Right axillary surgical clips. Partially imaged cardiac device. No appreciable soft tissue swelling. Medical Decision Making Additional Comment 54-year-old male presenting with a potentially infected right-sided midline catheter. An IV was placed in the other arm. He was given a dose of IV vancomycin and IV Zosyn. His lab work is unremarkable. The midline was removed. Order placed for PICC line nurse to place a midline catheter on the left side. Patient signed out to incoming ED physician. Departure Disposition: HOME / SELF CARE / HOMELESS Impression: Primary Impression: PICC line infection Additional Impression: PICC (peripherally inserted central catheter) removal Condition: Improved Discharge Instructions: PICC Insertion Additional Instructions: Please continue with your antibiotics. Follow up with PCP. Return to ED with any worsening symptoms. Referrals: NO PRIMARY CARE PROVIDER (PCP) Education Educated: Patient Educated regarding: diagnosis, treatment, need for follow up Signature Scribe Signature: . Attestation: . RON JACOB MD May 24, 2025 22:34 GENESIS GUPTA MD May 25, 2025 13:44
--- NOTE | 2025-05-24 22:39 | ELECTROCARDIOGRAPH REPORT ---
[facility] Test Date: 2025-05-24 Test Time: 22:37:52 Pat Name: MICHELLE VO Department: [facility]- Patient ID: [id number] Room: Gender: M Sequins Winder: : 1970 Requested By: RON JACOB Order Number: [id number] Reading MD: Measurements Intervals [place] Rate: 66 P: 63 CA: 152 QRS: 7 QRSD: 82 T: 58 QT: 422 QTc: 443 Interpretive Statements Sinus rhythm Probable left atrial enlargement Minimal ST elevation, anterior leads Baseline wander in lead(s) III,aVF Please click the below link to view image of tracing.
[2025-05-24 22:53] LABS: MEAN PLATELET VOLUME 7.5 FL (7.4-10.4); RED CELL DISTRIBUTION WIDTH 15.6 % (11.5-14.5)
[2025-05-24 23:05] LABS: APTT 28 SECONDS (22-32); INR 1.0 INR
[2025-05-24 23:07] LABS: CREATININE 0.20 MG/DL (0.60-1.10); TOTAL CARBON DIOXIDE 30.3 MMOL/L (24-32); eCRCL 472 ML/MIN; eGFR > 90 ML/MIN
[2025-05-24] MEDS: ondansetron/PF 4mg/2ml inj IV ONE (23:09)
[2025-05-24] MEDS: morphine 4 MG/ML inj SYRINge IV ONE (23:10)
--- NOTE | 2025-05-24 23:11 | RADIOLOGY REPORT ---
CLINICAL INDICATION: swelling RIGHT TECHNIQUE: 2 views right humerus, 3 views right forearm DI HUMERUS (2VWS), DI FOREARM,INCL.ONE JOINT Comparison: None FINDINGS/IMPRESSION: : No evidence of acute fracture. Diffuse osteopenia. Knee partially/shoulder, elbow, and wrist appear congruent with degenerative changes. No obvious wrist diffusion. Distal arm vascular catheter. Righ t axillary surgical clips. Partially imaged cardiac device. No appreciable soft tissue swelling.
[2025-05-25] MEDS: morphine 4 MG/ML inj SYRINge IV ONE (02:50)
[2025-05-25] MEDS ORDERED: vancomycin inj 1,000 MG in normal saline 250ml IV soln 250 ML IV ONE (04:45)
[2025-05-25] MEDS: piperacillin/tazo 3.375gm/50ml 50 ML IV ONE (05:07)
[2025-05-25] MEDS: ondansetron/PF 4mg/2ml inj IV STA (05:40)
[2025-05-25] MEDS: vancomycin/NS 1 GM ADD-VANTAGE 250 ML IV ONE (07:44)
[2025-05-25 15:19] VITALS: BP 125/83; PULSE 60; RESP 18; TEMP 98.2; O2SAT 98
== END 2025-05-25 14:30 | disposition home or self-care (01) ==
LOC: ER 21:33
DX: Z45.2 Encounter for adjustment and management of vascular access device (principal); I48.91 Unspecified atrial fibrillation; Z88.1 Allergy status to other antibiotic agents; Z88.2 Allergy status to sulfonamides; Z88.5 Allergy status to narcotic agent; Z90.49 Acquired absence of other specified parts of digestive tract; Z95.0 Presence of cardiac pacemaker; Z79.899 Other long term (current) drug therapy; Z87.442 Personal history of urinary calculi
CPT/HCPCS: 36410; 36415; 73060; 73090; 76937; 80053; 83605; 83735; 84484; 85025; 85610; 85730; 87040; 93005; 96365; 96366; 96367; 96375; 96376; 99285; C1751; J2270; J2405; J2543; J3373

== ENCOUNTER 2025-08-05 12:39 | Emergency (ER) | payer MEDICARE, MEDICAID ==
[~2025-08-05] VITALS: Ht 185.4 cm; Wt 79.4 kg
[~2025-08-05 12:39] MED LIST changes: +HYDR-3972 PO; +LINE600T14 PO; +ONDA-243 PO
[2025-08-05 12:52] VITALS: TEMP 98.1
[2025-08-05 14:36] LABS: MEAN PLATELET VOLUME 7.7 FL (7.4-10.4); RED CELL DISTRIBUTION WIDTH 15.9 % (11.5-14.5)
[2025-08-05 14:49] LABS: LEUKOCYTE ESTERASE ,URINE LARGE (Neg); NITRITES, URINE NEGATIVE (Neg); OCCULT BLOOD,URINE TRACE-INTACT (Neg)
[2025-08-05 14:50] LABS: CREATININE 0.16 MG/DL (0.60-1.10); TOTAL CARBON DIOXIDE 29.4 MMOL/L (24-32); eCRCL 579 ML/MIN; eGFR > 90 ML/MIN
[2025-08-05 14:51] LABS: UA COLLECTION TYPE FOLEY CATH
[2025-08-05 14:57] LABS: MUCUS STRANDS NONE SEEN /LPF (Neg); RENAL CELLS, URINE FEW /HPF; SQUAMOUS EPITHELIAL CELL,UR FEW /LPF (FEW); WBC CLUMPS,URINE MODERATE /HPF (NEGATIVE)
[2025-08-05 14:58] LABS: YEAST FEW /HPF (NEGATIVE)
[2025-08-05] MEDS: ondansetron/PF 4mg/2ml inj IV ONE (15:22)
--- NOTE | 2025-08-05 15:24 | Physician Documentation ---
History of Present Illness ~ Chief Complaint: Urinary Symptoms Stated Complaint: POSSIBLE KIDNEY STONES Time Seen by MD: 13:01 Primary Medical Doctor: DR. ARMENDARIZ; [facility] Source: patient Mode of Arrival: EMS Exam Limitations: no limitations HPI 55 year old male who is a quadriplegic with chief complaint symptoms that he attributes to a urinary tract infection and possible kidney stones. He states he has some feeling in his right flank area and when he starts experiencing this symptom it generally is due to a urinary tract infection and possibly a kidney stone. He states that he has had seven procedures for kidney stones most of them done at [facility]. His last procedure was done in May at [facility] where he had a stent placed. He reports this stent has since been removed. He was admitted here in June in due to a urinary tract infection. He was last treated for his UTI in 06/2025 and was treated with Meropenem for this. He reports he nausea, no vomiting along with chills. Medication Reconciliation Allergies: Coded Allergies: ciprofloxacin (Verified Allergy, Severe, 08/05/25) red purple rash meperidine (Verified Allergy, Mild, SEIZURE, 08/05/25) Sulfa (Sulfonamide Antibiotics) (Verified Allergy, Unknown, 08/05/25) Uncoded Allergies: SULFA (Allergy, Mild, 12/27/18) Scheduled Albuterol Sulfate (Ventolin Hfa), 2 PUFFS INH Q4HPRN, (Reported) Fexofenadine HCl (Allergy Relief), 1 TAB PO DAILY, (Reported) Gabapentin (Gabapentin), 2 CAP PO BID, (Reported) Levetiracetam (Levetiracetam), 1 TAB PO BID, (Reported) Linezolid (Linezolid), 1 TAB PO Q12H Losartan Potassium (Losartan Potassium), 25 MG PO DAILY Melatonin (Melatonin), 1 TAB PO HS, (Reported) Scheduled PRN Hydrocodone Bit/Acetaminophen (Hydrocodon-Acetaminophn 10-325 tablet), 1 TAB PO Q6H PRN for SEVERE PAIN 7-10 ONDANSETRON ODT 4mg tablet (Ondansetron Odt), 4 MG PO Q6H PRN for nausea/vomiting Past Medical History 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 HEENT: NCAT, EOMI, PERRL, normal oropharynx, moist oral mucosa. NECK: Supple, trachea midline. CARDIAC: Regular rate and rhythm, no murmurs, rubs, or gallops. PV: Equal distal pulses. No lower extremity edema, cap refill less than 2 seconds. RESPIRATORY: Decreased BS throughout, no w/r/r. GASTROINTESTINAL: Non distended, soft, nontender, No guarding or rebound. NEUROLOGICAL: Awake, alert, and oriented x 3. SKIN: Warm/dry, no pallor, no rash. PSYCH: Alert and appropriate. Affect congruent with mood. Speech is clear. Good eye contact. Progress Results/Orders Results/Orders Orders - TOMASZ PINEDA Cult Urine + [place] [address] (08/05/25 14:52) Ultrasound Kidney Non Vasc (08/05/25 14:57) Completed Orders - TOMASZ PINEDA Cbc/Diff (08/05/25 13:54) BMP (08/05/25 13:54) Ua W/Microscopic, Cult If Ind (08/05/25 14:35) Ultrasound Kidney Non Vasc (08/05/25 14:57) Ondansetron Inj. (Zofran 4mg/2ml Vial) (08/05/25 15:05) Medications Received in ER Medications (Trade) Dose Ordered Sig/Pebbles Route PRN Reason Start Time Stop Time Status Last Admin Dose Admin (Zofran 4mg/2ml vial) 4 mg ONCE ONCE IV 08/05/25 15:05 08/05/25 15:06 DC 08/05/25 15:22 4 MG Vital Signs 08/05/25 12:52 Temp 98.1 Pulse 72 Resp 16 B/P (MAP) 135/79 Pulse Ox 100 O2 Flow Rate 0 Laboratory Tests Test 08/05/25 14:15 08/05/25 14:35 White Blood Count 6.5 Red Blood Count 4.05 L Hemoglobin 12.2 L Hematocrit 36.1 L Mean Corpuscular Volume 89.1 Mean Corpuscular Hemoglobin 30.2 Mean Corpuscular Hemoglobin Concent 33.9 Red Cell Distribution Width 15.9 H Platelet Count 222 Mean Platelet Volume 7.7 Neutrophils (%) (Auto) 64.9 Lymphocytes (%) (Auto) 24.2 Monocytes (%) (Auto) 7.5 Eosinophils (%) (Auto) 2.6 Basophils (%) (Auto) 0.8 Neutrophils # (Auto) 4.2 Lymphocytes # (Auto) 1.6 Monocytes # (Auto) 0.5 Eosinophils # (Auto) 0.2 Basophils # (Auto) 0.0 CBC Comment Sodium Level 141 Potassium Level 3.7 Chloride Level 104 Carbon Dioxide Level 29.4 Anion Gap 8 Blood Urea Nitrogen 5 L Creatinine 0.16 L Estimated GFR/1.73 m2 > 90 BUN/Creatinine Ratio 31.3 H Glucose Level 96 Calcium Level 8.1 L Albumin 2.7 L Chemistry Comments Urine Specimen Description Presley cath Urine Color Straw Urine Clarity Slightly cloudy Urine pH 6.0 Urine Specific [place] <=1.005 Urine Protein Negative Urine Glucose (UA) Negative Urine Ketones Negative Urine Occult Blood Trace-intact Urine Nitrite Negative Urine Bilirubin Negative Urine Urobilinogen 0.2 Urine Leukocyte Esterase Large H Urine RBC 0-2 Urine WBC 50-100 H Urine WBC [place] Moderate Urine Squamous Epithelial Cells Few Urine Renal Cells Few Urine Bacteria 3+ Urine Mucus None seen Urine Yeast Few Urine Culture Indicated Indicated Volume Urine Centrifuged 10 ml Urine Comment Microbiology Date/Time Source Procedure Growth Status 08/05/25 14:52 Urine Presley Cath Urine Culture - Preliminary Culture received. Resulted Medical Decision Making Additional information obtaine: old records Findings LAST ADMISSION, LAST URINARY CULTURE RESULTS Urinary Diff Dx:Considerations: Include: AAA, Aortic dissection, Appendicitis, Appendicitis train, Bowel obstruction, Bladder outlet obstruc., Cholelithiasis, Choleangitis, Cholecystitis, DJD, Epididymitis, Hepatitis, HNP, Impaction, Musculoskeletal pain, Pancreatitis, Postoperative Comp., Prostatitis, Pyelonephritis, Renal failure, Renal infarction, Strain, Urolithiasis, Urinary Obstruction, Urethritis, Urinary retention, UTI, Other Genital Diff Dx:Considerations: Include: Abscess, Balanitis, Balanoposthitis, Cellulitis, Epididymitis, Entrapment injury, Igor's gangrene, Foreign body, Facture penis, Hydrocele, Inguinal hernia, Post-op Complication, Paraphimosis, Prostatitis, Priapism, Syphilis, Testicular torsion, Torsion-epididymis, Torsion-appendiceal, Urinary retention, Urethritis, Urethritis-chlamydial, Urethritis-gonococcal, UTI, Other Departure Time of Disposition: 15:57 Disposition: 01 HOME / SELF CARE / HOMELESS Impression: Primary Impression: Acute urinary tract infection Additional Impressions: Quadriplegia Suprapubic catheter History of kidney stones Condition: Stable Discharge Instructions: Urinary Tract Infection, Adult Additional Instructions: F/U WITH YOUR UROLOGIST RE: HAVING ANOTHER UTI I WANT YOU TO ASK YOUR UROLOGIST ABOUT GETTING A PRESCRIPTION FOR METHENAMINE HIPPURATE WHICH IS NOT AN ANTIBIOTIC BUT HELPS TO ACIDIFY THE URINE WHICH HELPS TO PREVENT UTI'S AND IS GENERALLY CONSIDERED SAFE AND EFFECTIVE ANTIBIOTIC SENT TO PHARMACY RETURN TO ER IF WORSENING OF SYMPTOMS Referrals: NO PRIMARY CARE PROVIDER (PCP) Prescriptions Amox Tr/Potassium Clavulanate 875/125 MG (Augmentin 875/125 MG) 875 Mg-125 Mg Tablet 1 TAB PO Q12H for 10 Days, #20 TAB Prov: TOMASZ PINEDA 08/05/25 Education Educated: Patient Educated regarding: diagnosis, treatment, need for follow up Signature Scribe Signature: liz Attestation: TOMASZ Chakraborty Aug 05, 2025 15:24
[2025-08-05] MEDS ORDERED: AMOX-580 PO (15:59)
--- NOTE | 2025-08-05 16:15 | RADIOLOGY REPORT ---
RENAL ULTRASOUND REASON FOR EXAM: UTI, RECENT KIDNEY STONES, QUADRAPLEGIC COMPARISON: CT CT ABDOMEN PELVIS W/WO IV CONTRAST on DOS: 07/11/25, CT ABDOMEN PELVIS on DOS: 09/21/22 TECHNIQUE: Real-time sector scans in multiple planes were obtained over the kidneys, ureters and bladder. FINDINGS: The right kidney measures 11.0 x 5.4 x 6.4 cm. The left kidney measures 9.6 x 4.7 x 5.9 cm. The left kidney is suboptimally visualized due to rigidity and difficulty with positioning. No mass is identified. There is no hydronephrosis. There is mildly prominent left extrarenal pelvis. The urinary bladder is within normal limits. IMPRESSION: Suboptimal sonographic evaluation of the kidneys, especially the left kidney, secondary to body rigidity and positioning. Within the limitations of the study, no renal mass is identified. There is no hydronephrosis of either kidney. Mildly prominent left extrarenal pelvis. The patient has a suprapubic catheter. The bladder is not visualized.
[2025-08-05] MEDS: amox tr/potassium clavulanate 875/125mg TAB PO ONE (16:36)
[2025-08-05 17:53] VITALS: BP 110/70; PULSE 70; RESP 16; O2SAT 100
== END 2025-08-05 17:55 | disposition home or self-care (01) ==
LOC: ER 12:39
DX: N39.0 Urinary tract infection, site not specified (principal); G82.50 Quadriplegia, unspecified; I48.91 Unspecified atrial fibrillation; Z88.1 Allergy status to other antibiotic agents; Z88.2 Allergy status to sulfonamides; Z88.5 Allergy status to narcotic agent; Z95.0 Presence of cardiac pacemaker; Z90.49 Acquired absence of other specified parts of digestive tract; Z87.442 Personal history of urinary calculi; Z87.440 Personal history of urinary (tract) infections; Z79.899 Other long term (current) drug therapy
CPT/HCPCS: 76770; 80048; 81001; 85025; 87088; 96374; 99285; J2405; 87077; 87186

== ENCOUNTER 2025-09-02 06:52 | Inpatient (IN) | payer MEDICARE, MEDICAID ==
[~2025-09-02] VITALS: Ht 185.4 cm; Wt 79.0 kg
[2025-09-02 08:27] LABS: LEUKOCYTE ESTERASE ,URINE LARGE (Neg); NITRITES, URINE POSITIVE (Neg); OCCULT BLOOD,URINE MODERATE (Neg)
[2025-09-02 08:28] LABS: MEAN PLATELET VOLUME 7.4 FL (7.4-10.4); RED CELL DISTRIBUTION WIDTH 15.4 % (11.5-14.5)
[2025-09-02 08:35] LABS: TOTAL CARBON DIOXIDE 32.6 MMOL/L (24-32)
[2025-09-02 08:39] LABS: UA COLLECTION TYPE FOLEY CATH
[2025-09-02 08:44] LABS: SQUAMOUS EPITHELIAL CELL,UR FEW /LPF (FEW)
[2025-09-02 08:45] LABS: CREATININE 0.15 MG/DL (0.60-1.10); eCRCL 614 ML/MIN; eGFR > 90 ML/MIN
[2025-09-02] MEDS: ondansetron/PF 4mg/2ml inj IV ONE ×2 (09:52→11:11)
--- NOTE | 2025-09-02 10:27 | Physician Documentation ---
History of Present Illness ~ General Chief Complaint: Flank Pain Stated Complaint: KIDNEY STONES Time Seen by MD: 10:09 Primary Medical Doctor: DR. ARMENDARIZ; [facility] Source: patient (14), family Mode of Arrival: EMS, Stretcher History of Present Illness Initial Comments Pt comes in with concern for possible kidney stone. He has a history of numerous kidney stones in the past, all of which have required removal, now at [facility] as they can not do so in this area. He now presents with pain that started two days ago which he feels along his left side both in the back, in the mid axillary line, and anteriorly. Pain is constant, and is reminiscent of his prior kidney stones. He tends to feel his pain differently because of quadriplegia status. Patient denies any blood in the urine, may have a slightly decreased urine output but no change in the quality, color, or clarity of the urine. There is no complaint of fever or vomiting with the patient is very nauseated. He has Zofran at home but did not take any this morning. His last kidney stone was in May of 2025. Patient receives Botox in his bladder because of recurrent stones, this is done at [facility]. Patient had an implantation of a baclofen pump in his right lower quadrant on August 30, three days ago. Medication Reconciliation Allergies: Coded Allergies: ciprofloxacin (Verified Allergy, Severe, 08/05/25) red purple rash meperidine (Verified Allergy, Mild, SEIZURE, 08/05/25) Sulfa (Sulfonamide Antibiotics) (Verified Allergy, Unknown, 08/05/25) Uncoded Allergies: SULFA (Allergy, Mild, 12/27/18) Scheduled Fexofenadine HCl (Allergy Relief), 1 TAB PO DAILY, (Reported) Gabapentin (Gabapentin), 2 CAP PO BID, (Reported) Levetiracetam (Levetiracetam), 1 TAB PO BID, (Reported) Melatonin (Melatonin), 1 TAB PO HS, (Reported) Scheduled PRN ONDANSETRON ODT 4mg tablet (Ondansetron Odt), 4 MG PO Q6H PRN for nausea/vomiting Discontinued Medications Albuterol Sulfate (Ventolin Hfa), 2 PUFFS INH Q4HPRN, (Reported) Discontinued Reason: patient no longer taking Hydrocodone Bit/Acetaminophen (Hydrocodon-Acetaminophn 10-325 tablet), 1 TAB PO Q6H PRN for SEVERE PAIN 7-10 Discontinued Reason: patient no longer taking Linezolid (Linezolid), 1 TAB PO Q12H Discontinued Reason: patient no longer taking Losartan Potassium (Losartan Potassium), 25 MG PO DAILY Discontinued Reason: patient no longer taking Past Medical History Past Medical History: Seizures, Atrial Fibrillation, Peptic Ulcer Disease, , *RENAL/* (Suprapubic catheter), Kidney Stones, UTI Other Past Medical History: Quadriplegia Past Surgical History: colectomy, pacemaker, other Other Past Surgical History: Ileostomy status Smoking Status: Never smoker Alcohol Use: None Drug Use: marijuana (Edible) Lives with: Mother, Father Lives In: Home Review of Systems All Other Systems at this time: Reviewed and Negative Physical Exam Physical Exam Vital Signs: Temperature: 98.3, Source: Oral, Heart Rate: 60, Respiratory Rate: 16, BP: 149/80, Pulse Oximetry: 100, Weight: 79.000 Oxygen Flow Rate: 0 Physical Exam General: Pt is awake, alert, oriented x4 in mild distress. Quadriplegia status Head: Normocephalic and atraumatic. Eyes: Conjunctiva normal. ENT: Mucous membranes moist. Neck: Supple. Chest: Clear to auscultation bilaterally, without rales, rhonchi, or wheezes. There is no accessory muscle use or retractions. Cardiac: Regular rate and rhythm without murmurs, gallops or rubs. Palpation of the chest wall is normal. Abd: Soft, nondistended, tender to light palpation everywhere especially anteriorly and L midaxillary line, and including over ribs, with normoactive bowel sounds. No guarding or rebound. RLQ bandage in place from baclofen pump -- bandage not removed but no erythema, warmth or drainage noted. Extremities: Within normal limits without cyanosis, clubbing, or edema. Skin: [place], warm and dry with no significant rash appreciated. Neuro: Cranial nerves II-XII grossly intact. Some motor function to right arm Progress Results/Orders Results/Orders Orders - DEVEN NELSON MD Cult Urine + [place] [address] (09/02/25 08:44) Ultrasound Kidney Non Vasc (09/02/25 10:28) Monitor (09/02/25 10:35) Saline Lock (09/02/25 10:35) Nothing By Mouth (09/02/25 Dinner) Meropenem Inj (Merrem Inj) (09/02/25 15:00) Page Hospitalist (09/02/25 14:04) Fill Out Med Reconciliation (09/02/25 14:04) Completed Orders - DEVEN NELSON MD Cbc/Diff (09/02/25 07:50) BMP (09/02/25 07:50) Lipase (09/02/25 07:50) CMP (09/02/25 07:50) Ua W/Microscopic, Cult If Ind (09/02/25 07:51) Ondansetron Inj. (Zofran 4mg/2ml Vial) (09/02/25 09:50) Ultrasound Kidney Non Vasc (09/02/25 10:28) Ondansetron Inj. (Zofran 4mg/2ml Vial) (09/02/25 10:35) Morphine 2mg/Ml Inj. (Morphine Inj.) (09/02/25 10:35) Normal Saline 1000ml (0.9% Sodium Chlori (09/02/25 10:35) Medications Received in ER Medications (Trade) Dose Ordered Sig/Pebbles Route PRN Reason Start Time Stop Time Status Last Admin Dose Admin (Zofran 4mg/2ml vial) 4 mg ONCE ONCE IV 09/02/25 09:50 09/02/25 09:51 DC 09/02/25 09:52 4 MG (Zofran 4mg/2ml vial) 4 mg ONCE ONCE IV 09/02/25 10:35 09/02/25 10:42 DC 09/02/25 11:11 4 MG (morphine inj.) 2 mg Q5M PRN IV moderate to severe pain 4-10 09/02/25 10:35 09/02/25 13:38 DC 09/02/25 13:38 2 MG (0.9% sodium chloride (NS) 1000ml IV soln) 1,000 ml ONCE ONCE IVB 09/02/25 10:35 09/02/25 10:37 DC 09/02/25 11:11 1,000 ML Vital Signs 09/02/25 09/02/25 09/02/25 09/02/25 07:24 07:47 07:47 09:06 Temp 98.3 Pulse 63 76 60 Resp 16 16 18 18 B/P (MAP) 158/74 158/74 (102) 154/80 (104) Pulse Ox 100 100 100 O2 Flow Rate 0 0 0 09/02/25 09/02/25 09/02/25 09/02/25 09:56 10:52 11:11 11:50 Pulse 60 60 99 Resp 16 18 16 18 B/P (MAP) 149/80 (103) 144/85 (104) 143/80 (101) Pulse Ox 100 100 98 O2 Flow Rate 0 0 0 09/02/25 09/02/25 09/02/25 09/02/25 12:11 12:31 12:49 13:09 Resp 16 16 16 16 09/02/25 09/02/25 09/02/25 13:11 13:35 13:38 Pulse 79 Resp 16 16 16 B/P (MAP) 140/75 (96) Pulse Ox 98 O2 Flow Rate 0 Laboratory Tests Test 09/02/25 07:51 09/02/25 08:04 Urine Specimen Description Presley cath Urine Color Straw Urine Clarity Cloudy Urine pH 6.0 Urine Specific Anderson <=1.005 Urine Protein Negative Urine Glucose (UA) Negative Urine Ketones Negative Urine Occult Blood Moderate H Urine Nitrite Positive H Urine Bilirubin Negative Urine Urobilinogen 0.2 Urine Leukocyte Esterase Large H Urine RBC 10-20 Urine WBC Tntc H Urine Squamous Epithelial Cells Few Urine Bacteria 4+ Urine Culture Indicated Indicated Volume Urine Centrifuged 10 ml Urine Comment White Blood Count 6.6 Red Blood Count 4.01 L Hemoglobin 12.0 L Hematocrit 35.6 L Mean Corpuscular Volume 88.6 Mean Corpuscular Hemoglobin 29.8 Mean Corpuscular Hemoglobin Concent 33.7 Red Cell Distribution Width 15.4 H Platelet Count 205 Mean Platelet Volume 7.4 Neutrophils (%) (Auto) 71.9 Lymphocytes (%) (Auto) 19.7 L Monocytes (%) (Auto) 7.2 Eosinophils (%) (Auto) 0.7 Basophils (%) (Auto) 0.5 Neutrophils # (Auto) 4.7 Lymphocytes # (Auto) 1.3 Monocytes # (Auto) 0.5 Eosinophils # (Auto) 0.0 Basophils # (Auto) 0.0 CBC Comment Sodium Level 141 Potassium Level 3.5 Chloride Level 104 Carbon Dioxide Level 32.6 H Anion Gap 4 L Blood Urea Nitrogen 6 L Creatinine 0.15 L Estimated GFR/1.73 m2 > 90 BUN/Creatinine Ratio 40.0 H Glucose Level 107 H Calcium Level 8.4 L Total Bilirubin 0.5 Aspartate Amino Transf (AST/SGOT) 14 Alanine Aminotransferase (ALT/SGPT) 9 L Alkaline Phosphatase 82 Total Protein 7.0 Albumin 2.7 L Globulin 4.3 Albumin/Globulin Ratio 0.6 L Lipase 89 H Chemistry Comments Microbiology Date/Time Source Procedure Growth Status 09/02/25 08:44 Urine Presley Cath Urine Culture - Preliminary Culture received. Resulted Re-Evaluation Re-Evaluation : Re-Evaluation Time: 14:00 Progress Pt's ultrasound showing no discrete stone, and mild left hydronephrosis consistent with prior findings of same. Consults/PCP Consults/PCP : Time Call Requested: 10:34 Consult Reason/Comments: MONA Sam Additional Comment Call placed to discuss urinalysis results. Pt with prior MDR Ecoli UTIs with evidence of UTI vs colonization today. Will defer abx treatment until ID consultation. 10:[address] Sam regarding the patient. She knows him well, and has followed his UTIs previously. We will speak again after ultrasound results are back, but patient should be on meropenem if he requires antibiotic treatment. 13:22 Dr. Kwame cancino 13:30 discussed patient's imaging findings. Dr. Dewey Hayes is in favor of admitting patient here, does not appear to have a new obstructing stone. She favors admission with meropenem, we will follow along with the admitting team and follow cultures. 14:35 Case d/w Dr. Grant, hospitalist Medical Decision Making Additional information obtaine: old records Findings Differential Diagnosis Patient with quadriplegia and history of indwelling suprapubic catheter with frequent urinary tract infections and complicated by frequent kidney stone. The concern today was for UTI versus obstructing stone, given the patient's typical pain complaint. Laboratory data and urinalysis were discussed with his infectious disease physician Dr. Sam, and parenteral antibiotic therapy instituted per her recommendations. Pain control and IV rehydration also performed here. Plan admission to hospitalist service for further evaluation and management. Departure Time of Disposition: 14:03 Admitted to Inpatient Unit: yes, to hospitalist Impression: Primary Impression: Acute urinary tract infection Additional Impressions: Quadriplegia Flank pain Qualified Codes: R10.A2 - Flank pain, left side Condition: Guarded Referrals: NO PRIMARY CARE PROVIDER (PCP) Education Educated: Patient, Family Educated regarding: diagnosis, treatment Signature Scribe Signature: Attestation: DEVEN NELSNO MD Sep 02, 2025 10:27
[2025-09-02] MEDS: normal saline 1000ML IV soln IVB ONE (11:11)
--- NOTE | 2025-09-02 11:42 | RADIOLOGY REPORT ---
US ULTRASOUND KIDNEY NON VASC HISTORY: Hx multiple kidney stones, r/o stones, hydroureter COMPARISON: US ULTRASOUND KIDNEY NON VASC on DOS: 08/05/25, CT CT ABDOMEN PELVIS W/WO IV CONTRAST on DOS: 07/11/25, CT ABDOMEN PELVIS on DOS: 09/21/22 TECHNIQUE: Transverse and longitudinal grayscale and color doppler images were obtained of the kidneys and bladder. FINDINGS: Right kidney: Size: 10.6 cm Cortical thickness: Normal Echogenicity: Normal Stones: None Masses: None Hydronephrosis: None Ureters: Not well visualized. Other: None Left kidney: Size: 12.7 cm Cortical thickness: Normal Echogenicity: Normal Stones: None Masses: None Hydronephrosis: Mild. Ureters: Not well visualized. Other: None Bladder: Catheter seen. Other: None. IMPRESSION: Mild left hydronephrosis, nonspecific and similar to prior.
[2025-09-02] MEDS ORDERED: magnesium sulf-water 2g/50mL 50 ML IV PRN (15:05)
[2025-09-02] MEDS ORDERED: magnesium hydroxide 30ml (MOM) UD suspension PO PRN (15:05)
[2025-09-02] MEDS ORDERED: magnesium sulf-water 4G/100mL 100 ML IV PRN (15:05)
[2025-09-02] MEDS ORDERED: potassium Cl 40MEQ/1/2NS 520ml 520 ML IV PRN (15:05)
[2025-09-02] MEDS ORDERED: potassium Cl 20 mEq SR tablet PO PRN (15:05)
[2025-09-02] MEDS ORDERED: mag hydrox/Alum hydrox/simeth 30ml oral suspension PO PRN (15:05)
[2025-09-02] MEDS ORDERED: magnesium Cl slow-release 64mg tablet PO PRN (15:05)
[2025-09-02] MEDS ORDERED: HYDROcodone/acetaminophen 5mg/325mg tablet PO PRN (15:05)
--- NOTE | 2025-09-02 15:21 | ELECTROCARDIOGRAPH REPORT ---
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 CYNTHIA Johnson Measurements Intervals Keymar Rate: 79 P: 0 NJ: 149 QRS: -7 QRSD: 84 T: 60 QT: 422 QTc: 484 Interpretive Statements A-V dual-paced complexes w/ some inhibition No further analysis attempted due to paced rhythm Electronically Signed On 09-03-2025 12:58:[address] CYNTHIA Johnson Please click the below link to view image of tracing.
[2025-09-02] MEDS: meropenem inj 1 GM in normal saline 100ml IV soln 100 ML IV SCH (15:25)
[2025-09-02] MEDS: normal saline 1000ml 1,000 ML IV SCH (15:26)
[2025-09-02] MEDS: HYDROcodone/acetaminophen 10/325mg tab PO PRN (15:30)
--- NOTE | 2025-09-02 15:43 | RADIOLOGY REPORT ---
CHEST RADIOGRAPH Indication: sob Technique: Single frontal view of the chest was obtained COMPARISON: DI CHEST,SINGLE VIEW on DOS: 04/25/25 FINDINGS: Lines and Tubes: There is a cardiac pacer overlying the right chest wall. There is a left central line with catheter tip in the lower SVC. Lungs: Clear Pleura: No effusion. No pneumothorax. Cardiomediastinal contours: Unremarkable Bones: Unremarkable IMPRESSION: No acute disease.
[2025-09-02] MEDS ORDERED: BISA10SU60 RC (16:23)
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
[2025-09-02 18:00] VITALS: BP 169/74; PULSE 60; RESP 18; TEMP 98.3; O2SAT 99
[2025-09-02] MEDS: ondansetron/PF 4mg/2ml inj IV PRN (19:03)
[2025-09-02] MEDS: docusate sod 100mg capsule PO SCH (20:00)
[2025-09-02] MEDS: K and/or MAG REPLACEMENT MC SCH (20:00)
[2025-09-02 20:20] VITALS: RESP 18
[2025-09-02] MEDS: lactobacillus rhamnosus 10,000 MMU CELLS/CAPSULE PO SCH (20:21)
[2025-09-02] MEDS: heparin, porcine 5000 units/ml vial SQ SCH (20:22)
[2025-09-02 22:00] VITALS: BP 157/88; PULSE 65; RESP 18; TEMP 97.5; O2SAT 97
[2025-09-02] MEDS: HYDROmorphone inj. 0.5 MG/0.5 ML DISP.SYRIN IV PRN (22:50)
[2025-09-03 05:36] LABS: MEAN PLATELET VOLUME 7.5 FL (7.4-10.4); RED CELL DISTRIBUTION WIDTH 15.1 % (11.5-14.5)
[2025-09-03 06:02] LABS: CHOL/HDL RATIO 2.7 (0.00-4.99); CREATININE 0.08 MG/DL (0.60-1.10); LDL CHOLESTEROL 81 MG/DL (50-100); PHOSPHORUS 2.4 MG/DL (2.3-4.5); TOTAL CARBON DIOXIDE 27.4 MMOL/L (24-32); eCRCL 1152 ML/MIN; eGFR > 90 ML/MIN
[2025-09-03 07:12] VITALS: BP 104/64; PULSE 59; RESP 18; TEMP 96.8; O2SAT 99
[2025-09-03] MEDS: potassium Cl 20 mEq SR tablet PO PRN (08:24)
[2025-09-03 10:00] VITALS: BP 104/63; PULSE 75; RESP 16; TEMP 98.7; O2SAT 98
--- NOTE | 2025-09-03 15:58 | PROGRESS NOTE- Residence ---
Progress Note - Resident Providers to CC Resident Creating Document: SUHAIL AVILA, RES ~ Presley-Non Protocol Presley Indications Met/Not Met: F/C Indications Met Antibiotic Timeout Antibiotic Ordered?: Yes Subjective Patient was seen and examined at bedside. Patient is bed-bound, having suprapubic catheter complains of pain in the left flank region, radiating to the groin region of the left side. Patient denies burning pain during urination, frequency, urgency, fever, chills, lower abdomen pain, nausea and vomiting. Patient denies any other concerns or complaints at the moment. PCP - [facility] Internet E Commerce Specialist - Dr. Swanson Urologist - Dr. Gottlieb, also follows up with [facility] Pain management - Dr. Hernandez at [facility] Objective Vital Signs Date Time Temp Pulse Resp B/P (MAP) Pulse Ox O2 Delivery O2 Flow Rate FiO2 09/03/25 12:09 16 09/03/25 10:00 98.7 75 104/63 (77) 98 Room Air 09/03/25 08:50 0.0 Result Diagram: 09/03/25 0443 09/03/25 0443 Awake , alert and oriented to time,place, person,not in distress HEENT: Atraumatic, normocephalic, PERRLA, EOMI, anicteric sclera ; pink conjunctiva, moist mucos membranes Neck: Trachea midline. Supple, normal range of motion, no JVD, no lymphadenopathy Chest and Respiratory: Equal breath sounds bilaterally, no tachypnea, wheezing, ronchi,rubs .Chest wall is symmetric and without deformity. Pacemaker blueprint on right upper chest Cardiac: S1, S2 heard,Regular rate and rhythm, no murmurs ,no gallops, no rubs. Abdomen: Soft, No tenderness, No guarding or rigidity, Kaur's sign negative. normal bowel sounds x4 quadrant, no hepatosplenomegaly Baclofen pump in right lower abdomen and ileostomy bag left lower abdomen. Genitourinary: Chronic Suprapubic catheter MSK: Range of motion of all extremities are normal. There is no joint pain or joint swelling or joint erythema. There is no muscle pain or tenderness or swelling. Extremities: warm, well-perfused, No cyanosis, clubbing, 2+ pulses felt Neurological: Mental status exam: alert and consciousness, orientation, memory, speech - Cranial nerve test: Cranial nerves II-XII intact. - Motor system: lower extremity power - 0/5, upper extremity power - 2/5 - Sensory system: Intact Skin: Warm and dry Psychiatry: Affect and mood are normal Assessment Assessment The patient is a 55-year-old male with past medical history of AFib, SSS s/p ppm, quadriplegia, recurrent UTIs, MDRO and kidney stones admitted with acute pyelonephritis. Plan Plan Acute pyelonephritis Left hydronephrosis Chronic suprapubic catheter Hx of recurrent UTIs, MDRO Hx of recurrent kidney stones No SIRS/sepsis Patient hss multidrug resistant E coli in 08/11. [facility] kidneys positive for mild left hydronephrosis, similar to prior examination. Urinalysis positive for nitrites, leukocyte esterase. Urine culture shows Gram-negative rods, awaiting C+S Vitals are stable No leukocytosis, normal procalcitonin and lactic acid. Dr. Sam was consulted and awaiting recommendations about duration of antibiotics IV meropenem 1 g q.8h, day 2 IV NS at 100 mL/hr Pain management - [place] and Dilaudid Continue isolation precautions Hypokalemia Potassium is 3.1 Replacement per protocol History of atrial fibrillation Currently in sinus rhythm. Not on anticoagulation. Continue follow up with Dr. Swanson. Sick sinus syndrome s/p permanent pacemaker placement Currently in sinus rhythm. Continue follow up with Dr. Swanson. Incomplete quadriplegia Bed-bound History of bedsores in 1993 Ileostomy bag in left lower abdomen Ambulates with total assistance Uses Quinn lift at home Baclofen pump for muscle spasms Continue wound care. Code Status: Full code DVT Prophylaxis: Heparin Analgesia/Sedation: Dilaudid, [place] Lines/Tubes: PIV Nutrition: Regular diet PT: Ordered Prognosis: Guarded Disposition: IV antibiotics and follow up Dr. Sam for duration of antibiotics. Resident attestation The above note has been reviewed and supervised by a senior resident PGY2/PGY3 Patient was seen, examined and discussed with the attending physician, Dr. ALTAF Avila MD Internal Medicine Resident, PGY 1 Date of Service: Sep 03, 2025 Billing Provider: KRANTHI SOLITARIO MD, SUNIL KUMAR, RES Sep 03, 2025 15:57
[2025-09-03] MEDS: bisacodyl 10mg suppository rectal RC PRN (18:39)
[2025-09-03 20:00] VITALS: BP 112/61; PULSE 74; RESP 14; TEMP 98.6; O2SAT 96
[2025-09-03 20:30] VITALS: RESP 16
--- NOTE | 2025-09-03 22:28 | PROGRESS NOTE ---
Progress Note ID Providers to CC ~ Progress Note Progress Note: Antibiotic Days Merrem 1 Lines PIV Micro 09/02 Urine- GNR 09/02 Blood- ngtd Subjective: Patient is a 54 year old quadriplegic male who is well known to me due to his history of nephrolithiasis, UTI including a history of resistant organisms. He completed a course of Merrem -> Ertapenem in July and had been feeling better until this weekend. He did have a recent Baclofen pump replaced but feels as though that is a separate incident from his re-development of the sensation he associates with his stones. He presented to the ER yesterday due to pain though US did not reveal any stones this time. Urine was dirty and so ID was contacted for empiric recommendations. He has been admitted and started on Merem based on his microbiologic history. On today's exam, he feels poorly including lots of malaise and hypersensitivity to palpation everywhere. Presley was changed a couple of weeks ago Objective Vitals: Afebrile, 75, 16, 104/63, 98% on RA General: alert, NAD RESP: Clear anteriorly ABD: Soft, tender but tender everywhere, SP cath and ostomy NEURO: incomplete quad EXT: contractures LINES: PIV ok Laboratory Tests 09/03/25 04:43 09/02 US Mild left hydronephrosis, nonspecific and similar to prior. Assessment // Complicated UTI with cultures growing prelim GNR // Nephrolithiasis // Neurogenic Bladder // C3-4 Incomplete Quadriplegia -eGFR by Cystatin C 91 // Recent MDR Ecoli // Allergy listed to Sulfa Plan -Continue empiric Merrem - Follow up urine cultures and deescalate as appropriate - Anticipate need for at least 7 days of therapy -Monitor CBC, CMP -Will continue to follow TERESA WILSON DO Sep 03, 2025 22:28
[2025-09-04 01:00] VITALS: BP 101/51; PULSE 71; RESP 13; TEMP 97.6; O2SAT 98
[2025-09-04 04:00] LABS: MEAN PLATELET VOLUME 7.4 FL (7.4-10.4); RED CELL DISTRIBUTION WIDTH 14.9 % (11.5-14.5)
[2025-09-04 04:14] LABS: CREATININE 0.25 MG/DL (0.60-1.10); PHOSPHORUS 1.8 MG/DL (2.3-4.5); TOTAL CARBON DIOXIDE 27.6 MMOL/L (24-32); eCRCL 369 ML/MIN; eGFR > 90 ML/MIN
[2025-09-04 06:00] VITALS: BP 114/67; PULSE 65; RESP 17; TEMP 97.8; O2SAT 99
[2025-09-04] MEDS: phenazopyridine 100mg tablet PO SCH (08:39)
[2025-09-04 09:45] LABS: % IRON SATURATION 18 % (11-46)
[2025-09-04 11:00] VITALS: BP 104/45; PULSE 74; RESP 16; TEMP 98; O2SAT 98
--- NOTE | 2025-09-04 16:50 | PROGRESS NOTE- Residence ---
Progress Note - Resident Providers to CC Resident Creating Document: SUHAIL AVILA, RES ~ Presley-Non Protocol Presley Indications Met/Not Met: F/C Indications Met Antibiotic Timeout Antibiotic Ordered?: Yes Subjective Patient was seen and examined at bedside. Patient is bed-bound, having suprapubic catheter still complains of pain and pressure in the abdomen and malaise. Patient denies burning pain during urination, frequency, urgency, fever, chills, lower abdomen pain, nausea and vomiting. Patient denies any other concerns or complaints at the moment. No acute overnight symptoms noted. PCP - [facility] [employer] [facility] - Dr. Swanson Urologist - Dr. Gottlieb, also follows up with [facility] Pain management - Dr. Hernandez at [facility] Objective Vital Signs Date Time Temp Pulse Resp B/P (MAP) Pulse Ox O2 Delivery O2 Flow Rate FiO2 09/04/25 11:00 98.0 74 16 104/45 (64) 98 Room Air 09/04/25 08:00 0.0 Result Diagram: 09/04/25 0332 09/04/25 0332 Awake , alert and oriented to time,place, person,not in distress HEENT: Atraumatic, normocephalic, PERRLA, EOMI, anicteric sclera ; pink conjunctiva, moist mucos membranes Neck: Trachea midline. Supple, normal range of motion, no JVD, no lymphadenopathy Chest and Respiratory: Equal breath sounds bilaterally, no tachypnea, wheezing, ronchi,rubs .Chest wall is symmetric and without deformity. Pacemaker blueprint on right upper chest Cardiac: S1, S2 heard,Regular rate and rhythm, no murmurs ,no gallops, no rubs. Abdomen: Soft, mild diffuse tenderness to palpation, No guarding or rigidity, Kaur's sign negative. normal bowel sounds x4 quadrant, no hepatosplenomegaly Baclofen pump in right lower abdomen and ileostomy bag left lower abdomen. Genitourinary: Chronic Suprapubic catheter MSK: Range of motion of all extremities are normal. There is no joint pain or joint swelling or joint erythema. There is no muscle pain or tenderness or swelling. Extremities: warm, well-perfused, No cyanosis, clubbing, 2+ pulses felt, c ontractures Neurological: Mental status exam: alert and consciousness, orientation, memory, speech - Cranial nerve test: Cranial nerves II-XII intact. - Motor system: lower extremity power - 0/5, upper extremity power - 2/5 Skin: Warm and dry Psychiatry: Affect and mood are normal Assessment Assessment The patient is a 55-year-old male with past medical history of AFib, SSS s/p ppm, quadriplegia, recurrent UTIs, MDRO and kidney stones admitted with acute pyelonephritis. Plan Plan Complicated UTI 2/2 Chronic suprapubic catheter, preliminary cx shows Gram- negative rods Mild left hydronephrosis Hx of recurrent UTIs, MDRO Hx of recurrent nephrolithiasis Neurogenic bladder No SIRS/sepsis Ruled out acute pyelonephritis Patient has recent MDR E coli in July 2025 [facility] kidneys positive for mild left hydronephrosis, similar to prior examination. Urinalysis positive for nitrites, leukocyte esterase. Urine culture shows MDR E.coli which is sensitive to meropenem, Zosyn and amoxicillin Blood Culture shows no growth Vitals are stable No leukocytosis, normal procalcitonin and lactic acid. Dr. Sam was consulted and advised to continue IV meropenem 1 g q.8h for 7 days and IV Ertapenem for 8 days. Ordered midline for IV antibiotics IV meropenem 1 g q.8h day 3 Pyridium 100 mg p.o. t.i.d. daily IV NS at 100 mL/hr Pain management - Dilaudid 1 mg/Percocet 5 mg q.4h PRN Continue isolation precautions Hypokalemia, resolved Potassium is 3.6 today Monitor BMP levels History of atrial fibrillation Currently in sinus rhythm. Not on anticoagulation. Continue follow up with Dr. Swanson. Sick sinus syndrome s/p permanent pacemaker placement Currently in sinus rhythm. Continue follow up with Dr. Swanson. Incomplete quadriplegia Bed-bound History of bedsores in 1993 Ileostomy bag in left lower abdomen Ambulates with total assistance Uses Quinn lift at home Baclofen pump recently replaced for muscle spasms Wound care was performed Code Status: Full code DVT Prophylaxis: Heparin Analgesia/Sedation: Dilaudid 1 mg/Percocet 5 mg q.4h PRN, Baclofen pump Lines/Tubes: PIV Nutrition: Regular diet PT: Ordered Prognosis: Guarded Disposition: Urine culture shows MDR E coli, Midline placement for IV antibiotics and possible discharge to home with home health in next 24 hours. Resident attestation The above note has been reviewed and supervised by a senior resident PGY2/PGY3 Patient was seen, examined and discussed with the attending physician, Dr. ALTAF Avila MD Internal Medicine Resident, PGY 1 Date of Service: Sep 04, 2025 Billing Provider: KRANTHI SOLITARIO MD, SUNIL KUMAR, RES Sep 04, 2025 16:50
[2025-09-04 18:00] VITALS: BP 120/57; PULSE 77; RESP 16; TEMP 98.1; O2SAT 99
[2025-09-04] MEDS ORDERED: ertapenem sod inj 1 GM in normal saline 100ml IV soln 100 ML IV SCH (18:45)
[2025-09-04] MEDS ORDERED: WATER FOR INJECTION IV SCH ×2 (19:01→19:03)
[2025-09-04] MEDS ORDERED: [UNRECOGNIZED DRUG - OTHER] IV SCH ×2 (19:01→19:03)
[2025-09-04] MEDS ORDERED: ERTAPENEM SOD IV SCH ×2 (19:01→19:03)
[2025-09-04] MEDS ORDERED: STERILE IV SCH ×2 (19:01→19:03)
[2025-09-04 20:00] VITALS: RESP 16; O2SAT 99
[2025-09-04 22:00] VITALS: BP 81/42; PULSE 68; RESP 12; TEMP 98; O2SAT 97
--- NOTE | 2025-09-04 22:25 | PROGRESS NOTE ---
Progress Note ID Providers to CC ~ Progress Note Progress Note: Antibiotic Days Merrem 2 Lines PIV Micro 09/02 Urine- MDR Ecoli 09/02 Blood- ngtd Subjective: Patient reported feeling a little better but not back to baseline yet. Susceptibilities of Ecoli confirmed and Merrem remains a good choice for therapy Objective Vitals: Afebrile, 65, 17, 114/67, 99% on RA General: alert, NAD RESP: Clear anteriorly ABD: Soft, tenderness improving, SP cath and ostomy NEURO: incomplete quad EXT: contractures LINES: PIV ok Laboratory Tests 09/04/25 03:32 Assessment // Complicated UTI with cultures growing MDR Ecoli // Nephrolithiasis // Neurogenic Bladder // C3-4 Incomplete Quadriplegia -eGFR by Cystatin C 91 // Recent MDR Ecoli // Allergy listed to Sulfa Plan -Continue Merrem in house - Scripts for home infusion Ertapenem 1 gm IV daily CBC, CMP weekly Stop date: 09/12/25 Please remove midline once therapy is complete TERESA WILSON DO Sep 04, 2025 22:25
[2025-09-05 01:20] VITALS: BP 82/50; PULSE 75; RESP 14; O2SAT 99
[2025-09-05] MEDS: normal saline 1000ml 1,000 ML IVB ONE (01:42)
[2025-09-05 03:25] VITALS: BP 91/51; PULSE 63; RESP 14; O2SAT 100
[2025-09-05 06:00] VITALS: BP 107/53; PULSE 70; RESP 16; TEMP 97.5; O2SAT 99
[2025-09-05] MEDS: [UNRECOGNIZED DRUG - OTHER] IV ONE (07:31)
[2025-09-05] MEDS: WATER FOR INJECTION IV ONE (07:31)
[2025-09-05] MEDS: ERTAPENEM SOD IV ONE (07:31)
[2025-09-05] MEDS: STERILE IV ONE (07:31)
[2025-09-05 07:52] LABS: MEAN PLATELET VOLUME 7.6 FL (7.4-10.4); RED CELL DISTRIBUTION WIDTH 15.4 % (11.5-14.5)
[2025-09-05 08:40] LABS: CREATININE 0.20 MG/DL (0.60-1.10); TOTAL CARBON DIOXIDE 25.5 MMOL/L (24-32); eCRCL 461 ML/MIN; eGFR > 90 ML/MIN
[2025-09-05 08:53] LABS: PHOSPHORUS 1.2 MG/DL (2.3-4.5)
[2025-09-05 10:00] VITALS: BP 95/54; PULSE 63; RESP 18; TEMP 97.9; O2SAT 100
[2025-09-05] MEDS ORDERED: LACT1CAP26 PO (12:27)
[2025-09-05] MEDS ORDERED: PHEN-716 PO (12:27)
--- NOTE | 2025-09-05 18:54 | DISCHARGE SUMMARY-Residence ---
Discharge Summary Providers to CC Resident Creating Document: SUHAIL TURNER YESSENIA, RES ~ Discharge Summary Admission Diagnosis: Pyelonephritis Hospital Course DATE OF ADMISSION: 09/02/25 DATE OF DISCHARGE: 09/05/25 Discharge Diagnosis\Comment: Complicated UTI 2/2 Chronic suprapubic catheter, preliminary cx shows Gram- negative rods Mild left hydronephrosis Hx of recurrent UTIs, MDRO Hx of recurrent nephrolithiasis Neurogenic bladder Hypokalemia, resolved History of atrial fibrillation Sick sinus syndrome s/p permanent pacemaker placement Incomplete quadriplegia Bed-bound Operations\Procedures: None Consultants: Dr. Sam, the infectious disease, MD Complications: None Condition on DC: Stable New Medications: Phenazopyridine HCl (Pyridium) 200 Mg Tablet 1 TAB PO Q8H for urinary discomfort for 5 Days, #15 TAB 0 Refills Lactobacillus Rhamnosus (Culturelle) 10 Billion Cell Capsule 55250 MMU PO BID for 30 Days, #60 CAP Continued Medications: Bisacodyl (Dulcolax) 10 Mg Supp.rect 1 SUPP RC DAILY for constipation for 10 Days, #10 SUPP 0 Refills Fexofenadine HCl (Allergy Relief) 180 Mg Tablet 1 TAB PO DAILY Gabapentin (Gabapentin) 400 Mg Capsule 2 CAP PO BID, CAP Levetiracetam (Levetiracetam) 1,000 Mg Tablet 1 TAB PO BID Melatonin (Melatonin) 5 Mg Tab.rapdis 1 TAB PO HS for sleep for 30 Days, #30 TAB 0 Refills ONDANSETRON ODT 4mg tablet (Ondansetron Odt) 4 Mg Tab.rapdis 4 MG PO Q6H PRN for nausea/vomiting, #24 TAB Discharge Summary: HPI as per admitting physician: The patient is a 55 year old male with past medical history of quadriplegia, recurrent kidney stones and UTIs, megacolon s/p colostomy, history of AFib, sick sinus syndrome s/p ppm who presented to the ED with complaints of severe left sided flank pain which started three days back. The patient has a history of recurrent UTI's and kidney stones and he follows up with Dr. Gottlieb. He also fo llows up with [facility] for Botox injections in his bladder and follows [facility] with Dr. Hernandez for baclofen pumps. He underwent recent baclofen pump replacement three days ago after which the symptoms started. The flank pain is associated with nausea and diarrhea which has resolved now. The patient also has a chronic Presley's catheter which was replaced two weeks ago.His quadriplegic and denies burning micturition, blood in urine, foul-smelling urine. Course in the hospital: Patient was admitted with left side flank pain radiating to the groin. Urine analysis is positive for infection. No leukocytosis, calcitonin and lactate are in normal limits. Renal ultrasound showed mild left hydronephrosis. Patient was started on empiric IV meropenem for 7 days. Urine culture growth of multidrug resistant E coli which is sensitive to meropenem, Zosyn. Dr. Sam was consulted and advised to give IV Ertapenem for next 7 days along with course of meropenem. Midline was placed patient was discharged with home health for IV antibiotics. Patient has hypokalemia resolved with potassium replacement protocol. Patient condition was significantly improved during the course of hospitalization and patient was stable at the time of discharge.Care plan discussed patient who is awake alert, all questions answered and all concerns addressed appropriately. All labs, diagnostic workup and discharge plan discussed with patient and in detail before her discharge. Discharge instructions provided to the patient. Imaging: Renal US-09/02/25: Mild left hydronephrosis, nonspecific and similar to prior. Chest X ray-09/02/25: No acute disease. Vital Signs Date Time Temp Pulse Resp B/P (MAP) Pulse Ox O2 Delivery O2 Flow Rate FiO2 09/05/25 10:00 97.9 63 18 95/54 (68) 100 Room Air 09/05/25 08:00 0.0 Laboratory Tests Test 09/04/25 03:32 09/04/25 08:46 09/05/25 07:42 White Blood Count 5.3 X10'3 5.1 X10'3 Red Blood Count 3.54 X10'6 3.56 X10'6 Hemoglobin 10.9 g/dl 10.9 g/dl Hematocrit 31.6 % 31.7 % Mean Corpuscular Volume 89.1 FL 88.8 FL Mean Corpuscular Hemoglobin 30.7 PG 30.5 PG Mean Corpuscular Hemoglobin Concent 34.4 g/dL 34.3 g/dL Red Cell Distribution Width 14.9 % 15.4 % Platelet Count 192 X10'3 170 X10'3 Mean Platelet Volume 7.4 FL 7.6 FL Neutrophils (%) (Auto) 74.6 % 70.0 % Lymphocytes (%) (Auto) 17.3 % 18.9 % Monocytes (%) (Auto) 7.6 % 9.1 % Eosinophils (%) (Auto) 0.2 % 1.3 % Basophils (%) (Auto) 0.3 % 0.7 % Neutrophils # (Auto) 4.0 X10'3 3.6 X10'3 Lymphocytes # (Auto) 0.9 X10'3 1.0 X10'3 Monocytes # (Auto) 0.4 X10'3 0.5 X10'3 Eosinophils # (Auto) 0.0 X10'3 0.1 X10'3 Basophils # (Auto) 0.0 X10'3 0.0 X10'3 CBC Comment Sodium Level 142 MMOL/L 145 MMOL/L Potassium Level 3.6 MMOL/L 3.6 MMOL/L Chloride Level 108 MMOL/L 114 MMOL/L Carbon Dioxide Level 27.6 MMOL/L 25.5 MMOL/L Anion Gap 6 6 Blood Urea Nitrogen 6 MG/DL 5 MG/DL Creatinine 0.25 MG/DL 0.20 MG/DL Estimated GFR/1.73 m2 > 90 ML/MIN > 90 ML/MIN BUN/Creatinine Ratio 24.0 25.0 Glucose Level 95 MG/DL 98 MG/DL Calcium Level 7.7 MG/DL 7.7 MG/DL Phosphorus Level 1.8 MG/DL 1.2 MG/DL Magnesium Level 1.7 MG/DL 1.7 MG/DL Total Bilirubin 0.3 MG/DL 0.3 MG/DL Aspartate Amino Transf (AST/SGOT) 36 U/L 25 U/L Alanine Aminotransferase (ALT/SGPT) 49 U/L 33 U/L Alkaline Phosphatase 116 IU/L 99 IU/L Total Protein 5.9 G/DL 5.8 G/DL Albumin 2.2 G/DL 2.2 G/DL Globulin 3.7 G/DL 3.6 G/DL Albumin/Globulin Ratio 0.6 0.6 Chemistry Comments Iron Level 34 UG/DL Total Iron Binding Capacity 192 UG/DL Percent Iron Saturation 18 % Transferrin 173 mg/dL Ferritin 64 NG/ML Examination on the day of discharge: Awake , alert and oriented to time,place, person,not in distress HEENT: Atraumatic, normocephalic, PERRLA, EOMI, anicteric sclera ; pink conjunctiva, moist mucos membranes Neck: Trachea midline. Supple, normal range of motion, no JVD, no lymphadenopathy Chest and Respiratory: Equal breath sounds bilaterally, no tachypnea, wheezing, ronchi,rubs .Chest wall is symmetric and without deformity. Pacemaker blueprint on right upper chest Cardiac: S1, S2 heard,Regular rate and rhythm, no murmurs ,no gallops, no rubs. Abdomen: Soft, no tenderness to palpation, No guarding or rigidity, Kaur's sign negative. normal bowel sounds x4 quadrant, no hepatosplenomegaly Baclofen pump in right lower abdomen and ileostomy bag left lower abdomen. Genitourinary: Chronic Suprapubic catheter MSK: Range of motion of all extremities are normal. There is no joint pain or joint swelling or joint erythema. There is no muscle pain or tenderness or swelling. Extremities: warm, well-perfused, No cyanosis, clubbing, 2+ pulses felt, contractures Neurological: Mental status exam: alert and consciousness, orientation, memory, speech - Cranial nerve test: Cranial nerves II-XII intact. - Motor system: lower extremity power - 0/5, upper extremity power - 2/5 Skin: Warm and dry Psychiatry: Affect and mood are normal Advice on discharge: Follow up with PCP and Dr. Gottlieb, the urologist at [facility] after 1 week. Continue Pyridium 200 mg t.i.d. for next 5 days. Pain does not improve, follow up with Dr. Hernandez at [facility]. Continue IV meropenem for next 3 days Continue IV Ertapenem and stop date is 09/12/25. Remove midline after discontinuation of IV antibiotics *Problems/Diagnosis: (1) Complicated UTI (urinary tract infection) (2) Hydronephrosis, left (3) Hypokalemia (4) Atrial fibrillation (5) Sick sinus syndrome (6) Quadriplegia Total Time Spent on D/C: > 30 Minutes Date of Service: Sep 05, 2025 Billing Provider: KRANTHI SOLITARIO MD, SUNIL KUMAR, RES Sep 05, 2025 18:52
[2025-09-06] MEDS ORDERED: ERTAPENEM SOD IV SCH (08:00)
[2025-09-06] MEDS ORDERED: WATER FOR INJECTION IV SCH (08:00)
[2025-09-06] MEDS ORDERED: STERILE IV SCH (08:00)
[2025-09-06] MEDS ORDERED: [UNRECOGNIZED DRUG - OTHER] IV SCH (08:00)
== END 2025-09-05 17:41 | disposition home health service (06) | DRG 698 ==
LOC: ER 06:52 → ED HOLD 15:10 → SUR 3N 18:36
PROVIDERS: ADMIT Family Medicine; ATTEND Family Medicine
PROC: 05HD33Z Insertion of Infusion Device into Right Cephalic Vein, Percutaneous Approach (ICD-10-PCS; principal; 2025-09-05)
PROC: B54MZZA Ultrasonography of Right Upper Extremity Veins, Guidance (ICD-10-PCS; 2025-09-05)
DX: T83.518A Infection and inflammatory reaction due to other urinary catheter, initial encounter (principal); G82.52 Quadriplegia, C1-C4 incomplete; N13.6 Pyonephrosis; B96.20 Unspecified Escherichia coli [E. coli] as the cause of diseases classified elsewhere; Z16.39 Resistance to other specified antimicrobial drug; I48.91 Unspecified atrial fibrillation; N20.0 Calculus of kidney; N31.9 Neuromuscular dysfunction of bladder, unspecified; Y83.8 Other surgical procedures as the cause of abnormal reaction of the patient, or of later complication, without mention of misadventure at the time of the procedure; Z90.49 Acquired absence of other specified parts of digestive tract; Z88.2 Allergy status to sulfonamides; Z88.1 Allergy status to other antibiotic agents; Z93.2 Ileostomy status; Z87.442 Personal history of urinary calculi; Z87.11 Personal history of peptic ulcer disease; Y92.89 Other specified places as the place of occurrence of the external cause; Z74.01 Bed confinement status
CPT/HCPCS: 36410; 36415; 71045; 76770; 76937; 80053; 80061; 81001; 82728; 83036; 83540; 83550; 83605; 83690; 83735; 84100; 84145; 84466; 85025; 87040; 87077; 87088; 87186; 92508; 93005; 96361; 96365; 96375; 99285; A6213; A6250; C1751; G0378; J1171; J1335; J1644; J2185; J2270; J2405; J7030

== ENCOUNTER 2025-09-25 10:45 | Emergency (ER) | payer MEDICARE, MEDICAID ==
[~2025-09-25 10:45] MED LIST changes: -ALBU18HF2 INH; +BISA10SU60 RC; -HYDR-3972 PO; +LACT1CAP26 PO; -LINE600T14 PO; -LOSA25TA41 PO; +PHEN-716 PO
--- NOTE | 2025-09-25 11:01 | Physician Documentation ---
History of Present Illness ~ General Stated Complaint: POSS KIDNEY INFECTION Time Seen by MD: 11:00 Primary Medical Doctor: DR. ARMENDARIZ; [facility] History of Present Illness Initial Comments 55-year-old male, presenting with a positive urine culture and needing antibiotics. Requesting a midline The patient has a long history of multi-drug resistant infections, and quadriplegia. He says that he developed symptoms a couple of days ago that are similar to when he has urinary tract infection in the past. He had an outpatient urine and urine culture performed which was positive for infection and grew back with multi-drug resistance, sensitive to meropenem and Zosyn, similar to previous. His mother states that he has a very important appointment in 2 days. He can not miss this. She wonders if there is a way to get him antibiotics that he can take it home. He denies definite fevers. No current pain. Medication Reconciliation Allergies: Coded Allergies: ciprofloxacin (Verified Allergy, Severe, 08/05/25) red purple rash meperidine (Verified Allergy, Mild, SEIZURE, 08/05/25) Sulfa (Sulfonamide Antibiotics) (Verified Allergy, Unknown, 08/05/25) Uncoded Allergies: SULFA (Allergy, Mild, 12/27/18) Scheduled Bisacodyl (Dulcolax), 1 SUPP RC DAILY, (Reported) Fexofenadine HCl (Allergy Relief), 1 TAB PO DAILY, (Reported) Gabapentin (Gabapentin), 2 CAP PO BID, (Reported) Lactobacillus Rhamnosus (Culturelle), 10,000 MMU PO BID Levetiracetam (Levetiracetam), 1 TAB PO BID, (Reported) Melatonin (Melatonin), 1 TAB PO HS, (Reported) Phenazopyridine HCl (Pyridium), 1 TAB PO Q8H Scheduled PRN ONDANSETRON ODT 4mg tablet (Ondansetron Odt), 4 MG PO Q6H PRN for nausea/vomiting Past Medical History Past Medical History: Seizures, Atrial Fibrillation, Peptic Ulcer Disease, , *RENAL/*, Kidney Stones, UTI Past Surgical History: colectomy, pacemaker, other Other Past Surgical History: Ileostomy status Alcohol Use: None Drug Use: marijuana Lives with: Mother, Father Lives In: Home Review of Systems Constitutional: Reports: weakness; Denies: fever Gastrointestinal: Denies: abdominal pain Physical Exam Physical Exam Physical Exam General: This is a very pleasant and smiling middle-aged man, mother at bedside HEENT: Atraumatic, oropharynx appears dry Heart: Regular rate and rhythm, normal-appearing peripheral perfusion Lungs: normal work of breathing, normal oxygen saturation on room air Neuro: Alert and oriented Psychiatric: Calm and cooperative with exam Progress Results/Orders Results/Orders Orders - TRAE EISENBERG MD Midline Placement(Picc Nurse) (09/25/25 10:53) Line Placement(Picc Nurse) (09/25/25 ) Completed Orders - TRAE EISENBERG MD Line Placement(Picc Nurse) (09/25/25 ) Meropenem Inj (Merrem Inj) (09/25/25 12:12) Ertapenem Sod Inj (Invanz Inj) (09/25/25 14:00) Ertapenem Sod Inj (Invanz Inj) (09/25/25 14:32) Medications Received in ER Medications (Trade) Dose Ordered Sig/Pebbles Route PRN Reason Start Time Stop Time Status Last Admin Dose Admin Ertapenem 1 gm/ Sodium Chloride 110 ml @ 110 mls/hr ONCE ONCE IV 09/25/25 14:32 09/25/25 14:59 DC 09/25/25 14:57 110 MLS/HR Vital Signs 09/25/25 09/25/25 14:44 15:26 Pulse 60 Resp 17 B/P (MAP) 162/87 Pulse Ox 99 Consults/PCP Consults/PCP : Additional Comment 1:00 p.m.: Consult: I spoke to the infectious disease physician. She agrees with plan for antibiotics, recommends ertapenem. She will assist in a prescription for the ertapenem. Medical Decision Making Additional information obtaine: old records Findings Reviewed past records including recent admission and infectious disease consult Differential Diagnosis UTI, asymptomatic bacteria, sepsis Assessment The patient presents with symptoms that are equivalent to past urinary tract infections. He had a positive urine culture performed 2 days ago. He does not appear septic. Given his circumstances regarding his other medical care, it seemed reasonable to place a midline and discharged him with antibiotics at home, since his mother is able to do this safely. I did contact his infectious disease doctor who agreed with this plan. She was able to provide the prescription for the outpatient antibiotic. He was given a dose of ertapenem here in the ED. Departure Time of Disposition: 14:08 Disposition: 01 HOME / SELF CARE / HOMELESS Impression: Primary Impression: Complicated UTI (urinary tract infection) Discharge Instructions: Urinary Tract Infection, Adult Referrals: NO PRIMARY CARE PROVIDER (PCP) Education Educated: Patient, Family Educated regarding: diagnosis, need for follow up Signature Scribe Signature: na Attestation: TRAE Ponce MD Sep 25, 2025 11:01
[2025-09-25] MEDS ORDERED: MEROPENEM 1GM/NACL 50ML IVPB 50 ML IV ONE (12:11)
[2025-09-25] MEDS: meropenem inj 1 GM in normal saline 100ml IV soln 100 ML IV ONE (12:12)
[2025-09-25] MEDS ORDERED: ertapenem sod inj 1 GM in normal saline 100ml IV soln 100 ML IV ONE (14:00)
[2025-09-25 14:44] VITALS: O2SAT 99
[2025-09-25] MEDS: ertapenem sod inj 1 GM in normal saline 100ml IV soln 110 ML IV ONE (14:57)
[2025-09-25 15:00] VITALS: BP 162/87; PULSE 62; RESP 14
== END 2025-09-25 17:21 | disposition home or self-care (01) ==
LOC: ER 10:45
DX: N39.0 Urinary tract infection, site not specified (principal); I48.91 Unspecified atrial fibrillation; F12.90 Cannabis use, unspecified, uncomplicated; Z87.11 Personal history of peptic ulcer disease; Z87.440 Personal history of urinary (tract) infections; Z87.442 Personal history of urinary calculi; Z88.1 Allergy status to other antibiotic agents; Z88.2 Allergy status to sulfonamides; Z88.5 Allergy status to narcotic agent; Z95.0 Presence of cardiac pacemaker; Z90.49 Acquired absence of other specified parts of digestive tract; Z79.899 Other long term (current) drug therapy
CPT/HCPCS: 36410; 76937; 96365; 99285; C1751; J1335